=== PATIENT | female | born 1980 | race Caucasian/White ===

== ENCOUNTER 2022-10-25 16:41 | Observation (INO) | payer MEDICAID ==
[2022-10-25] MEDS ORDERED: SODIUM CHLORIDE 0.9% 1,000 ML IV STA (17:08)
[2022-10-25 17:20] LABS: BASOPHILS # (AUTO) 0.1 10^3/uL (0.0-0.1); BASOPHILS % (AUTO) 1.6 %; EOSINOPHILS % (AUTO) 0.3 %; HCT - HEMATOCRIT 31.6 % (37.0-47.0); HGB - HEMOGLOBIN 10.2 g/dL (12.0-16.0); LYMPHOCYTES # (AUTO) 0.8 10^3/uL (1.5-3.5); LYMPHOCYTES % (AUTO) 24.6 %; MEAN CORPUSCULAR HEMOGLOBIN 32.1 pg (27.0-31.0); MEAN CORPUSCULAR HGB CONC 32.3 g/dL (32.0-36.0); MEAN CORPUSCULAR VOLUME 99.4 fL (81.0-99.0); MEAN PLATELET VOLUME 9.1 fL (7.9-10.8); MONOCYTES # (AUTO) 0.3 10^3/uL (0.0-1.0); MONOCYTES % (AUTO) 10.5 %; NEUTROPHILS % (AUTO) 62.4 %; PLT - PLATELET COUNT 160 10^3/uL (130-450); RED BLOOD COUNT 3.18 10^6/uL (4.20-5.40); WHITE BLOOD COUNT 3.1 x10^3/uL (4.8-10.8)
[2022-10-25 17:28] LABS: INR 1.1 (0.8-1.2); PT - PROTHROMBIN TIME 12.5 secs (9.9-12.6)
[2022-10-25 17:39] LABS: ALBUMIN 3.1 g/dL (3.2-5.5); ALKALINE PHOSPHATASE 139 IU/L (42-121); ALT ALANINE AMINOTRANSFERASE 32 IU/L (10-60); AST ASPARTATE AMINOTRANSFERASE 100 IU/L (10-42); BILIRUBIN,TOTAL 2.4 mg/dL (0.2-1.0); BUN - BLOOD UREA NITROGEN 10 mg/dL (6-20); CALCIUM 8.1 mg/dL (8.5-10.3); CARBON DIOXIDE - CO2 27 mmol/L (21-32); CHLORIDE 98 mmol/L (101-111); CK- CREATINE KINASE 60 IU/L (22-269); CREATININE 0.6 mg/dL (0.4-1.0); ETOH - ETHANOL < 5.0 mg/dL; GFR - MDRD 109 (>89); GLUCOSE 99 mg/dL (70-100); LIPASE 151 U/L (22-51); MAGNESIUM 1.3 mg/dL (1.7-2.8); POTASSIUM 3.3 mmol/L (3.5-5.0); SODIUM 139 mmol/L (135-145); TOTAL PROTEIN 6.3 g/dL (6.7-8.2)
[2022-10-25] MEDS ORDERED: MAGNESIUM SULFATE 2 GRAM 2 GM/50 ML BAG IV ONE (17:51)
[2022-10-25] MEDS ORDERED: POTASSIUM CHLOR 10 MEQ/100 ML 10 MEQ/100 ML BAG IV STA (17:51)
[2022-10-25] MEDS ORDERED: THIAMINE INJ 100 MG in SODIUM CHLORIDE 0.9% 50 ML IV STA (17:52)
[2022-10-25] MEDS ORDERED: FOLIC ACID INJ 1 MG in SODIUM CHLORIDE 0.9% 1,000 ML IV STA (17:52)
[2022-10-25] MEDS ORDERED: FOLIC ACID INJ 1 MG, THIAMINE INJ 100 MG in SODIUM CHLORIDE 0.9% 1,000 ML IV STA (18:02)
[2022-10-25] MEDS ORDERED: LORazepam 2 MG/ML VIAL IVP STA ×3 (18:10→21:37)
--- NOTE | 2022-10-25 18:10 | ED Physician Documentation ---
History of Present Illness - Stated complaint Stated Complaint: ETOH/GENERAL WEAKNESS - Chief complaint Chief Complaint: Neuro - Additonal information Additional information: Patient 42-year-old female coming from local area detox facility presenting with confusion and hallucinations. Per EMS report auditory and visual hallucinations earlier today. Is receiving lorazepam. History of longstanding alcohol abuse disorder greater than 11 years. Patient reports she was drinking greater than 1 bottle of tequila daily.History is limited by her altered mental status. Review of Systems Unable to obtain: AMS PD PAST MEDICAL HISTORY - Present Medications Home Medications: Ambulatory Orders Medication Instructions Recorded Confirmed Acetaminophen [Tylenol] 1,000 mg PO Q6HR PRN 10/25/22 10/25/22 Gabapentin [Neurontin] 300 mg PO TID 10/25/22 10/25/22 Ibuprofen 600 mg PO Q6HR PRN 10/25/22 10/25/22 LORazepam [Ativan] 1 mg PO QID 10/25/22 10/26/22 Melatonin 10 mg PO HS PRN 10/25/22 10/25/22 Multivitamin [Theragran] 1 each PO DAILY 10/25/22 10/25/22 Ondansetron Odt [Zofran Odt] 4 mg TL Q6H PRN 10/25/22 10/25/22 Promethazine [Phenergan] 25 mg PO TID PRN 10/25/22 10/26/22 Vitamin B Complex Vit C No.3 [B 1 each PO DAILY 10/25/22 10/25/22 Complex with Vitamin C] methocarbamoL [Methocarbamol] 1,500 mg PO Q6HR PRN 10/25/22 10/26/22 traZODone [Desyrel] 50 - 100 mg PO HS PRN 10/25/22 10/25/22 - Allergies Allergies/Adverse Reactions: Allergies Allergy/AdvReac Type Severity Reaction Status Date / Time Penicillins Allergy Unknown Verified 10/25/22 16:44 PD ED PE NORMAL - Vitals Vital signs reviewed: Yes (BL BP) - General General: Alert and oriented X 3, Other (Patient with slowed, somnolent responses, appears to be responding to internal stimuli.) - HEENT HEENT: Atraumatic, PERRL, EOMI, Ears normal, Moist mucous membranes, Pharynx benign, Dentition benign, Other - Neck Neck: Supple, no meningeal sign, No bony TTP, No adenopathy, Thyroid normal, No JVD, No bruit, C-Spine cleared by NEXUS criteria - Cardiac Cardiac: RRR, No murmur, No gallop, No rub, Strong equal pulses - Respiratory Respiratory: No respiratory distress, Clear bilaterally - Abdomen Abdomen: Normal bowel sounds, Soft, Non tender, No organomegaly - Female Female : Deferred - Rectal Rectal: Deferred - Derm Derm: Normal color, Warm and dry - Neuro Neuro: Alert and oriented X 3, news photographer 2-12 intact, Other (Somewhat unreliable exam secondary to portions altered mentation however possible left lower extremity weakness in comparison to right. Patient freely moves all extremities.) Results - Vitals Vitals: Vital Signs - 24 hr 10/25/22 10/25/22 10/25/22 20:37 21:44 22:10 Heart Rate 99 91 87 Respiratory 18 21 15 Rate Blood Pressure 137/109 H 135/107 H 133/110 H O2 Saturation 98 98 99 If not protocol : Oxygen Flow, liters/minute 10/25/22 10/26/22 10/26/22 23:27 00:13 02:30 Heart Rate 83 80 84 Respiratory 17 17 18 Rate Blood Pressure 150/111 H 138/108 H 148/112 H O2 Saturation 100 96 100 If not protocol 2 2 : Oxygen Flow, liters/minute 10/26/22 10/26/22 10/26/22 04:00 06:00 06:53 Heart Rate 86 93 88 Respiratory 19 28 H 24 Rate Blood Pressure 154/113 H 142/112 H 152/113 H O2 Saturation 94 97 95 If not protocol : Oxygen Flow, liters/minute 10/26/22 10/26/22 08:12 10:00 Heart Rate 96 96 Respiratory 22 21 Rate Blood Pressure 139/110 H 126/109 H O2 Saturation 97 98 If not protocol : Oxygen Flow, liters/minute Oxygen O2 Source Room air - EKG (time done) 1726 EKG releavant findings:: EKG personally interpreted by author of this note. Relevant findings are: Sinus rhythm with rate 89 bpm. Normal axis. Normal HI, QRS, QTc intervals. No ST segment elevations or T wave inversions. - Labs Labs: Microbiology 10/26/22 03:36 Urine Culture - Preliminary Urine,Clean Catch CULTURE IN PROGRESS. RESULTS TO FOLLOW. Laboratory Tests 10/25/22 10/25/22 10/25/22 17:11 17:11 17:11 WBC 3.1 L RBC 3.18 L Hgb 10.2 L Hct 31.6 L MCV 99.4 H MCH 32.1 H MCHC 32.3 RDW 17.0 H Plt Count 160 MPV 9.1 Neut # (Auto) 2.0 Lymph # (Auto) 0.8 L Wharton # (Auto) 0.3 Eos # (Auto) 0.0 Baso # (Auto) 0.1 Absolute Nucleated RBC 0.00 Nucleated RBC % 0.0 PT 12.5 INR 1.1 Sodium 139 Potassium 3.3 L Chloride 98 L Carbon Dioxide 27 Anion Gap 14.0 H BUN 10 Creatinine 0.6 Estimated GFR (MDRD) 109 Glucose 99 Lactic Acid Calcium 8.1 L Magnesium 1.3 L Total Bilirubin 2.4 H AST 100 H ALT 32 Alkaline Phosphatase 139 H Ammonia Total Creatine Kinase 60 Total Protein 6.3 L Albumin 3.1 L Globulin 3.2 Albumin/Globulin Ratio 1.0 Lipase 151 H Urine Color Urine Clarity Urine pH Ur Specific [place] Urine Protein Urine Glucose (UA) Urine Ketones Urine Occult Blood Urine Nitrite Urine Bilirubin Urine Urobilinogen Ur Leukocyte Esterase Urine RBC Urine WBC Ur Squamous Epith Cells Urine Bacteria Ur Microscopic Review Urine Culture Comments Urine HCG, Qual Nasal Adenovirus (PCR) Nasal B. parapertussis DNA (PCR) Nasal Coronavir 229E PCR Nasal Coronavir HKU1 PCR Nasal Coronavir NL63 PCR Nasal Coronavir OC43 PCR Nasal Enterovir/Rhinovir PCR Nasal Influenza B PCR Nasal Influenza A PCR Nasal Parainfluen 1 PCR Nasal Parainfluen 2 PCR Nasal Parainfluen 3 PCR Nasal Parainfluen 4 PCR Nasal RSV (PCR) Nasal B.pertussis DNA PCR Nasal C.pneumoniae (PCR) Gary Human Metapneumo PCR Nasal M.pneumoniae (PCR) Nasal SARS-CoV-2 (PCR) Urine Opiates Screen Ur Oxycodone Screen Urine Methadone Screen Ur Propoxyphene Screen Ur Barbiturates Screen Ur Tricyclics Screen Ur Phencyclidine Scrn Ur Amphetamine Screen U Methamphetamines Scrn U Benzodiazepines Scrn Urine Cocaine Screen U Cannabinoids Screen Ethyl Alcohol < 5.0 10/25/22 10/25/22 10/26/22 17:11 18:12 03:27 WBC RBC Hgb Hct MCV MCH MCHC RDW Plt Count MPV Neut # (Auto) Lymph # (Auto) Wharton # (Auto) Eos # (Auto) Baso # (Auto) Absolute Nucleated RBC Nucleated RBC % PT INR Sodium Potassium Chloride Carbon Dioxide Anion Gap BUN Creatinine Estimated GFR (MDRD) Glucose Lactic Acid 2.6 H Calcium Magnesium Total Bilirubin AST ALT Alkaline Phosphatase Ammonia 45.9 H Total Creatine Kinase Total Protein Albumin Globulin Albumin/Globulin Ratio Lipase Urine Color Urine Clarity Urine pH Ur Specific [place] Urine Protein Urine Glucose (UA) Urine Ketones Urine Occult Blood Urine Nitrite Urine Bilirubin Urine Urobilinogen Ur Leukocyte Esterase Urine RBC Urine WBC Ur Squamous Epith Cells Urine Bacteria Ur Microscopic Review Urine Culture Comments Urine HCG, Qual Nasal Adenovirus (PCR) NOT DETECTED Nasal B. parapertussis DNA (PCR) NOT DETECTED Nasal Coronavir 229E PCR NOT DETECTED Nasal Coronavir HKU1 PCR NOT DETECTED Nasal Coronavir NL63 PCR NOT DETECTED Nasal Coronavir OC43 PCR NOT DETECTED Nasal Enterovir/Rhinovir PCR NOT DETECTED Nasal Influenza B PCR NOT DETECTED Nasal Influenza A PCR NOT DETECTED Nasal Parainfluen 1 PCR NOT DETECTED Nasal Parainfluen 2 PCR NOT DETECTED Nasal Parainfluen 3 PCR NOT DETECTED Nasal Parainfluen 4 PCR NOT DETECTED Nasal RSV (PCR) NOT DETECTED Nasal B.pertussis DNA PCR NOT DETECTED Nasal C.pneumoniae (PCR) NOT DETECTED Gary Human Metapneumo PCR NOT DETECTED Nasal M.pneumoniae (PCR) NOT DETECTED Nasal SARS-CoV-2 (PCR) NOT DETECTED Urine Opiates Screen Ur Oxycodone Screen Urine Methadone Screen Ur Propoxyphene Screen Ur Barbiturates Screen Ur Tricyclics Screen Ur Phencyclidine Scrn Ur Amphetamine Screen U Methamphetamines Scrn U Benzodiazepines Scrn Urine Cocaine Screen U Cannabinoids Screen Ethyl Alcohol 10/26/22 10/26/22 10/26/22 03:36 03:36 05:21 WBC RBC Hgb Hct MCV MCH MCHC RDW Plt Count MPV Neut # (Auto) Lymph # (Auto) Wharton # (Auto) Eos # (Auto) Baso # (Auto) Absolute Nucleated RBC Nucleated RBC % PT INR Sodium 141 Potassium 3.3 L Chloride 106 Carbon Dioxide 24 Anion Gap 11.0 BUN 7 Creatinine 0.5 Estimated GFR (MDRD) 135 Glucose 77 Lactic Acid Calcium 7.4 L Magnesium 2.0 Total Bilirubin 2.2 H AST 78 H ALT 27 Alkaline Phosphatase 127 H Ammonia Total Creatine Kinase Total Protein 5.6 L Albumin 2.8 L Globulin 2.8 Albumin/Globulin Ratio 1.0 Lipase 88 H Urine Color YELLOW Urine Clarity SL. CLOUDY Urine pH 6.5 Ur Specific [place] 1.015 Urine Protein NEGATIVE Urine Glucose (UA) NEGATIVE Urine Ketones NEGATIVE Urine Occult Blood NEGATIVE Urine Nitrite NEGATIVE Urine Bilirubin NEGATIVE Urine Urobilinogen 2 H Ur Leukocyte Esterase LARGE H Urine RBC 0-5 Urine WBC >25 H Ur Squamous Epith Cells FEW Squamous Urine Bacteria Many H Ur Microscopic Review INDICATED Urine Culture Comments INDICATED Urine HCG, Qual NEGATIVE Nasal Adenovirus (PCR) Nasal B. parapertussis DNA (PCR) Nasal Coronavir 229E PCR Nasal Coronavir HKU1 PCR Nasal Coronavir NL63 PCR Nasal Coronavir OC43 PCR Nasal Enterovir/Rhinovir PCR Nasal Influenza B PCR Nasal Influenza A PCR Nasal Parainfluen 1 PCR Nasal Parainfluen 2 PCR Nasal Parainfluen 3 PCR Nasal Parainfluen 4 PCR Nasal RSV (PCR) Nasal B.pertussis DNA PCR Nasal C.pneumoniae (PCR) Gary Human Metapneumo PCR Nasal M.pneumoniae (PCR) Nasal SARS-CoV-2 (PCR) Urine Opiates Screen NEGATIVE Ur Oxycodone Screen NEGATIVE Urine Methadone Screen NEGATIVE Ur Propoxyphene Screen NEGATIVE Ur Barbiturates Screen NEGATIVE Ur Tricyclics Screen NEGATIVE Ur Phencyclidine Scrn NEGATIVE Ur Amphetamine Screen NEGATIVE U Methamphetamines Scrn NEGATIVE U Benzodiazepines Scrn POSITIVE H Urine Cocaine Screen NEGATIVE U Cannabinoids Screen NEGATIVE Ethyl Alcohol 10/26/22 05:21 WBC RBC Hgb Hct MCV MCH MCHC RDW Plt Count MPV Neut # (Auto) Lymph # (Auto) Wharton # (Auto) Eos # (Auto) Baso # (Auto) Absolute Nucleated RBC Nucleated RBC % PT INR Sodium Potassium Chloride Carbon Dioxide Anion Gap BUN Creatinine Estimated GFR (MDRD) Glucose Lactic Acid 0.9 Calcium Magnesium Total Bilirubin AST ALT Alkaline Phosphatase Ammonia Total Creatine Kinase Total Protein Albumin Globulin Albumin/Globulin Ratio Lipase Urine Color Urine Clarity Urine pH Ur Specific [place] Urine Protein Urine Glucose (UA) Urine Ketones Urine Occult Blood Urine Nitrite Urine Bilirubin Urine Urobilinogen Ur Leukocyte Esterase Urine RBC Urine WBC Ur Squamous Epith Cells Urine Bacteria Ur Microscopic Review Urine Culture Comments Urine HCG, Qual Nasal Adenovirus (PCR) Nasal B. parapertussis DNA (PCR) Nasal Coronavir 229E PCR Nasal Coronavir HKU1 PCR Nasal Coronavir NL63 PCR Nasal Coronavir OC43 PCR Nasal Enterovir/Rhinovir PCR Nasal Influenza B PCR Nasal Influenza A PCR Nasal Parainfluen 1 PCR Nasal Parainfluen 2 PCR Nasal Parainfluen 3 PCR Nasal Parainfluen 4 PCR Nasal RSV (PCR) Nasal B.pertussis DNA PCR Nasal C.pneumoniae (PCR) Gary Human Metapneumo PCR Nasal M.pneumoniae (PCR) Nasal SARS-CoV-2 (PCR) Urine Opiates Screen Ur Oxycodone Screen Urine Methadone Screen Ur Propoxyphene Screen Ur Barbiturates Screen Ur Tricyclics Screen Ur Phencyclidine Scrn Ur Amphetamine Screen U Methamphetamines Scrn U Benzodiazepines Scrn Urine Cocaine Screen U Cannabinoids Screen Ethyl Alcohol PD Medical Decision Making - ED course Complexity details: reviewed old records, re-evaluated patient ED course: Patient 42-year-old female coming from local area detox facility with complaint of altered mental status and hallucinations. Afebrile, hemodynamically stable on arrival to the emergency department. Notably patient has soft blood pressures and no tachycardia on arrival. Physical exam demonstrated a somewhat ill-appearing 42-year-old female who is alert and orientated but had slowed responses to questions and appeared to be responding to internal stimuli throughout my interview. She moves all extrem ities spontaneously however was poorly compliant with my neurologic exam. She did not demonstrate any significant tremor, dysmetria or weakness in the upper extremities however there was possibly some increased weakness when laid using the left lower extremity against gravity versus the right. No clear time of onset for the symptoms. EKG as outlined above was negative for indications of acute cardiac ischemia or dysrhythmia. Patient's lab work demonstrated some significant electrolyte abnormalities and she was given magnesium repletion as well as potassium, folate and thiamine. She was given IV fluids. CT of the head did demonstrate a 8 mm hygroma with 4 mm midline shift of unclear clinical significance. Her initial CIWA calculated by nursing staff was 19. I did order for 1 mg IV A tivan to be administered in the emergency department. At this time I will be signing this patient out to the oncoming physicianPlease see their documentation for further detail. Departure - Departure Disposition: ED Place in Observation Clinical Impression: Alcohol withdrawal delirium, Hypomagnesemia, Hypokalemia Urinary tract infection Qualifiers: Urinary tract infection type: acute cystitis Hematuria presence: without hemat uria Qualified Code(s): N30.00 - Acute cystitis without hematuria Condition: Stable Discharge Date/Time: 10/26/22 11:14
--- NOTE | 2022-10-25 18:49 | CT Report ---
PROCEDURE: CT brain without contrast INDICATIONS: AMS TECHNIQUE: Noncontrast 4.5 mm thick angled axial sections acquired from the foramen magnum to the vertex. For r adiation dose reduction, the following was used: automated exposure control, adjustment of mA and/or kV according to patient size. COMPARISON: None. FINDINGS: Image quality: Excellent. CSF spaces: Basal cisterns are patent. Low-density left-sided extra-axial fluid collection measures up to 8 mm in thickness and results in 4 mm [id number] midline shift and smaller right-sided extra -axial fluid measures up to 3 mm. No evidence of parenchymal hemorrhage. Ventricles are normal in si ze and shape. Brain: No midline shift. No intracranial masses or hemorrhage. Bedolla-white matter interface is norm al. Skull and face: Calvarium and visualized facial bones are intact, without suspicious lesions. Sinuses: Visualized sinuses and mastoids are clear. IMPRESSION: Left-sided subdural hygroma measures 8 mm in thickness results in 4 mm midline shift. No evidence of parenchymal hemorrhage Reviewed by: Aniceto Luna MD on 10/25/2022 5:47 PM AKDT Approved by: Aniceto Luna MD on 10/25/2022 5:47 PM AKDT Station ID: [id number]
--- NOTE | 2022-10-25 19:14 | Ultrasound Report ---
PROCEDURE: Abdomen Limited INDICATIONS: Evaluation of gallbladder TECHNIQUE: Real-time focused scanning was performed of the abdomen, with image documentation. COMPARISONS: None. FINDINGS: Liver: The liver demonstrates diffusely increased echotexture without focal abnormalities which is c onsistent with chronic hepatocellular disease/hepatic steatosis. Gallbladder: Gallbladder contains layering sludge. No wall thickening. No pericholecystic fluid. Nega tive sonographic Post's sign. No gallstones identified. Biliary ducts: Intrahepatic bile ducts are non-dilated. Extrahepatic bile duct caliber measures 6 m m. Normal is 6-7 mm or less in diameter, or 10 mm or less post-cholecystectomy. Pancreas: Visualized portions of the pancreas are sonographically normal. Right kidney: Normal in size and echotexture. Right kidney measures 10.3 cm long. No hydronephrosis or nephrolithiasis. No solid masses. No complex renal cystic lesions which require follow-up. Aorta: Visualized aorta is normal in caliber at less than 3 cm. IVC: Intrahepatic inferior vena cava is patent. Miscellaneous: No free abdominal fluid. IMPRESSION: 1. Hepatic steatosis without focal intrahepatic abnormalities. 2. Gallbladder sludge near the gallbladder fundus. No evidence for cholelithiasis. No sonographic alfreda dence for acute cholecystitis. Reviewed by: Devaughn Gonzalez MD on 10/25/2022 7:13 PM PDT Approved by: Devaughn Gonzalez MD on 10/25/2022 7:13 PM PDT Station ID: [id number]
[2022-10-25 19:37] LABS: B. PARAPERTUSSIS- RESP PCR PAN NOT DETECTED; B. PERTUSSIS- RESP PCR PANEL NOT DETECTED; C. PNEUMONIAE- RESP PCR PANEL NOT DETECTED; CORONAVIRUS 229E-RESP PCR NOT DETECTED; CORONAVIRUS HKU1-RESP PCR NOT DETECTED; CORONAVIRUS NL63-RESP PCR NOT DETECTED; CORONAVIRUS OC43-RESP PCR NOT DETECTED; HUMAN METAPNEUMOVIRUS NOT DETECTED; INFLUENZA A- RESP PCR PANEL NOT DETECTED; INFLUENZA B - RESP PCR PANEL NOT DETECTED; M. PNEUMONIAE- RESP PCR PANEL NOT DETECTED; PARAINFLUENZA VIRUS 1 NOT DETECTED; PARAINFLUENZA VIRUS 2 NOT DETECTED; PARAINFLUENZA VIRUS 3 NOT DETECTED; PARAINFLUENZA VIRUS 4 NOT DETECTED; RHINOVIRUS/ENTEROVIRUS NOT DETECTED; RSV- RESP PCR PANEL NOT DETECTED; SARS-CoV-2 -RESP PCR PANEL NOT DETECTED
--- NOTE | 2022-10-25 22:41 | ED Physician Documentation ---
ED Addendum - Addendum Addendum: 10/25/22 22:37 I received signout on this patient from Dr. Rowe at the end of his shift; please see his note for complete H&P. In brief, this patient comes to the emergency department from [facility] ([facility] where she had been staying for the past 2 days for treatment of alcohol withdrawal. Reportedly, she was sent to the emergency department tonight for increasingly altered mental status and generalized weakness. Of chief concern is the finding of an [address] of the head which is causing a 4 mm midline shift. On my evaluation the patient, she is asleep, awakens to voice but only when accompanied by gentle tactile stimulus. She awakens briefly, is very drowsy, has slurred, mumbling speech. Most of her answers are difficult to understand and, when they are intelligible, are either irrelevant to the question or else simply incorrect (for example, she says she is in "[facility]" when I ask her where she is. She is able to tell me her first name, but is unintelligible when trying to provide her last name).Her altered mental status also complicates the exam including the neurologic exam. She has equal communications professor on my exam, raises both legs briefly when instructed, but does not have any dorsiflexion or plantarflexion bilaterally (I suspect this is more likely due to altered mental status, she repeatedly falls asleep on this part of the exam). I do not see nor find any lateralizing neurologic symptoms. I discussed this case with the neurosurgeon on-call for [facility] (Dr. Gallegos). This conversation took place at 10:30 PM on 10/25/2022; he recommends repeating the CT head now. He says that if there is no significant change, patient would not benefit from, no require, transfer to another facility. 10/26/22 08:[address] head shows no significant change from the CT head performed 4 hours earlier. She continues to exhibit drowsiness, slurred speech, and is disoriented to time and place. However, her answers to my questions have become more intelligible (less slurred). I note extremity tremulousness with movement although not at rest. After a few more hours of observation in the emergency department, I contacted the on-call telehealth physician for [facility] to discuss admission to [facility] for ongoing AMS. The telehealth physician I spoke with said he would be agreeable to writing orders to admit this patient to [facility], but that his recommendation was a neurology consult as well as EEG; he says he is concerned about possible subclinical seizures. We discussed this concern further, and given that EEG is not available at [facility], I was more comfortable holding patient in ED overnight and contacting the [facility] hospitalist in the morning if patient does not improve adequately to consider d/c home. Although patient is exhibiting and altered mental status, there is no seizure activity observed and I do not see the need/indication for emergent neurology consult and/or EEG in this confused but conscious patient. Towards the end of my shift, patient has become increasingly awake, alert, and eventually is oriented x3. She answers my questions quietly but quickly, articulately, and accurately. A CTA of the head and neck is performed towards the end of my shift, and these do not show any significant change from the previous CT head (regarding the hygroma/midline shift), nor any other acute/concerning findings. The patient's tremulousness is noted to gradually but steadily worsen, although responds to repeated doses of lorazepam intravenously. Some consideration was given to try to get the patient back to [facility], but, unfortunately, ED RN was unable to get patient to even stand at the bedside due to tremulousness and generalized weakness. The [facility] facility requires that patients are able to ambulate independently. Thus, I contacted Dr. House, [facility] hospitalist, and she will admit patient to [facility] for observation. My impression of the cause of her symptoms is alcohol withdrawal with delirium. Repeated neurologic exams during my shift continued to demonstrate no focal nor lateralizing abnormalities. Patient tells me she has been drinking on a heavy and daily basis for at least several months, drinks a bottle of tequila every day. She says that she has never been treated on an inpatient basis for alcohol withdrawal in the past. She tells me she does not recall any recent falls. Regarding past medical history, patient tells me that she has high blood pressure and is supposed be taking a prescription blood pressure medication but admits that she has not been taking this recently. She is not sure which blood pressure medication she supposed be taking.
--- NOTE | 2022-10-25 23:28 | CT Report ---
PROCEDURE: HEAD WO INDICATIONS: abnormal CT 4 hours ago, repeat CT for comparison TECHNIQUE: Noncontrast 4.5 mm thick angled axial sections acquired from the foramen magnum to the vertex. For r adiation dose reduction, the following was used: automated exposure control, adjustment of mA and/or kV according to patient size. COMPARISON: Prior CT head 10/25/2022.. FINDINGS: Image quality: There is mild motion artifact slightly limiting evaluation. CSF spaces: There is a holohemispheric left hypodense subdural hygroma redemonstrated measuring up t o approximately 1.0 cm in thickness, similar in size compared to the prior study (remeasured). There is mild rightward midline shift measuring up to 0.5 cm, also similar to the prior study. Basal cister ns are patent. Ventricles are normal in size. Brain: No acute intracranial hemorrhage, mass, or mass effect. Bedolla-white matter interface appears preserved. Skull and face: Calvarium and visualized facial bones are intact, without suspicious lesions. Sinuses: Visualized sinuses and mastoids are clear. IMPRESSION: 1. Left holohemispheric subdural hygroma and mild rightward midline shift appear similar to the prior study. No definite acute intracranial hemorrhage. Reviewed by: Ari Meyer MD on 10/25/2022 11:40 PM PDT Approved by: Ari Meyer MD on 10/25/2022 11:40 PM PDT Station ID: [id number]
[2022-10-26 03:39] LABS: MUDS CUTOFF CONCENTRATIONS CUTOFF CONC BELOW:
[2022-10-26 03:41] LABS: BILIRUBIN,URINE NEGATIVE (NEGATIVE); GLUCOSE, URINE (UA) NEGATIVE (NEGATIVE); KETONES,URINE (UA) NEGATIVE (NEGATIVE); LEUKOCYTE ESTERASE, URINE LARGE (NEGATIVE); NITRITE,URINE NEGATIVE (NEGATIVE); OCCULT BLOOD,URINE NEGATIVE (NEGATIVE); PH,URINE 6.5 PH (5.0-7.5); PROTEIN,URINE NEGATIVE (NEGATIVE); UROBILINOGEN,URINE 2 E.U./dL (NORMAL)
[2022-10-26 03:48] LABS: BACTERIA,URINE Many /HPF (None Seen); CLARITY,URINE SL. CLOUDY (CLEAR); RBC,URINE 0-5 /HPF (0-5); SQUAMOUS EPITHELIAL CELL,UR FEW Squamous (<= Few); WBC,URINE >25 /HPF (0-5)
[2022-10-26 03:51] LABS: AMPHETAMINE SCREEN,URINE NEGATIVE (NEGATIVE); BARBITURATE SCREEN,UR NEGATIVE (NEGATIVE); BENZODIAZEPINES SCREEN, URINE POSITIVE (NEGATIVE); COCAINE SCREEN URINE NEGATIVE (NEGATIVE); METHADONE SCREEN, URINE NEGATIVE (NEGATIVE); METHAMPHETAMINES SCREEN, URINE NEGATIVE (NEGATIVE); OPIATE SCREEN, URINE NEGATIVE (NEGATIVE); OXYCODONE SCREEN, URINE NEGATIVE (NEGATIVE); PROPOXYPHENE SCREEN, URINE NEGATIVE (NEGATIVE); THC CANNABINOID SCREEN, URINE NEGATIVE (NEGATIVE); TRICYCLIC ANTIDEPRESSANT,URINE NEGATIVE (NEGATIVE)
[2022-10-26 04:11] LABS: HCG UR QUAL NEGATIVE
[2022-10-26] MEDS ORDERED: iohexoL-300 100 ML VIAL ONE (05:15)
[2022-10-26 05:38] LABS: ALBUMIN 2.8 g/dL (3.2-5.5); BILIRUBIN,TOTAL 2.2 mg/dL (0.2-1.0); CALCIUM 7.4 mg/dL (8.5-10.3); CREATININE 0.5 mg/dL (0.4-1.0); POTASSIUM 3.3 mmol/L (3.5-5.0); TOTAL PROTEIN 5.6 g/dL (6.7-8.2)
[2022-10-26] MEDS ORDERED: iohexoL-300 100 ML VIAL IVP ONE (05:45)
[2022-10-26] MEDS ORDERED: LORazepam 2 MG/ML VIAL IVP STA ×2 (05:54→07:21)
[2022-10-26] MEDS ORDERED: NITROFURANTOIN MACRO 100 MG CAPSULE PO STA (05:55)
[2022-10-26] MEDS ORDERED: CALCIUM CARBONATE CHEW 500 MG TABLET PO STA (07:11)
[2022-10-26] MEDS ORDERED: POTASSIUM CHLOR 10 MEQ/100 ML 10 MEQ/100 ML BAG IV ONE (07:11)
[2022-10-26] MEDS: POTASSIUM CHLOR 10 MEQ/100 ML 10 MEQ/100 ML BAG IV SCH ×4 (08:40→11:55)
--- NOTE | 2022-10-26 08:49 | CT Report ---
PROCEDURE: ANGIO NECK W INDICATIONS: AMS , generalized weakness CONTRAST: 80mL Omni 300 TECHNIQUE: After the administration of intravenous contrast, 1.5 mm axial sections acquired from the aortic arch to the [place] of [place]. Coronal 3-D maximum intensity projection (MIP) and/or volume rendering ref ormats were then performed. For radiation dose reduction, the following was used: automated exposur e control, adjustment of mA and/or kV according to patient size. COMPARISON: None. FINDINGS: Image quality: Excellent. Carotid system: The great vessels demonstrate a conventional anatomy as they arise from the aortic a rch. The origins of the common carotid arteries appear patent. The common carotid arteries demonstr ate normal calibers and courses. The bifurcation regions appear normal bilaterally. The internal ca rotid arteries demonstrate normal caliber and course. Posterior circulation: The origins of the vertebral arteries appear patent. The more superior porti ons of the vertebral arteries demonstrate normal course and caliber. They join to form a normal appe aring basilar artery. Soft tissues: Visualized neck soft tissues demonstrate no suspicious abnormalities. The thyroid is normal in size and there are no incidental findings. Likely iatrogenic venous gas noted in upper thor ax. Bones: No suspicious bony lesions. Visualized cervical spine appears normally aligned. IMPRESSION: No hemodynamically significant stenosis or aneurysm is seen in bilateral neck arteries. Findings are concordant with preliminary interpretation provided by [facility]. The estimate of stenosis included in the report of the imaging study was calculated using the NASCET method CLINICAL RECOMMENDATION STATEMENTS: In patients <35 years with an ITN detected on CT, MRI, or extrathyroidal ultrasound, the Committee re commends further evaluation with dedicated thyroid ultrasound if the nodule is "e1 cm and has no susp icious imaging features, and if the patient has normal life expectancy. In patients "e35 years with an ITN detected on CT, MRI, or extrathyroidal ultrasound, the Committee r ecommends further evaluation with dedicated thyroid ultrasound if the nodule is "e1.5 cm and has no s uspicious imaging features, and if the patient has normal life expectancy. (ACR, 2014) Reviewed by: Esau Cheatham MD on 10/26/2022 8:48 AM PDT Approved by: Esau Cheathma MD on 10/26/2022 8:48 AM PDT Station ID: [id number]
--- NOTE | 2022-10-26 08:52 | CT Report ---
PROCEDURE: ANGIO HEAD W/WO INDICATIONS: ams, hygroma on CTs performed earlier in ED CONTRAST: 80mL Omni 300 TECHNIQUE: Precontrast 4.5 mm thick angled axial sections acquired from the foramen magnum to the vertex. Afte r the administration of intravenous contrast, 1 mm thick sections acquired through the [place] of [place] is. Postcontrast 4.5 mm thick sections then re-acquired from the foramen magnum to the vertex. 3-di mensional cikcjml-wrcdiglds-qwrjvbqfnh (MIP) and/or volume rendering reformats were acquired of the c entral intracranial vasculature. For radiation dose reduction, the following was used: automated ex posure control, adjustment of mA and/or kV according to patient size. COMPARISON: CT of head dated 10/25/2022 FINDINGS: Image quality: Excellent. Anterior circulation: Intracranial internal carotid arteries are normal in size and flow. The flow within the paired anterior cerebral arteries is normal and symmetric. The flow within the middle cer ebral arteries is normal and symmetric. The anterior communicating artery is seen. No aneurysms are seen. Posterior circulation: Visualized portions of the vertebral arteries demonstrate normal caliber, and join to form a normal appearing basilar artery. Flow within the posterior cerebral arteries is norm al and symmetric. No aneurysms are seen. CSF spaces: Ventricles are normal in size and shape. Basal cisterns are patent. No extra-axial flu id collections. Brain: Hypodense subdural collection along left cerebral convexity is seen unchanged from previous st udies. Of 2 5 mm midline shift to the right is again noted unchanged. [place]-white matter interface dheeraj ears intact. Skull and face: Calvarium and facial bones appear intact, without suspicious lesions. Sinuses: Visualized sinuses and mastoids are clear. IMPRESSION: 1. No hemodynamically significant stenosis or aneurysm is seen in visualized intracranial circulation . 2. Stable appearing left-sided subdural hygroma with 5 mm midline shift to the right. No acute intrac ranial bleed. No area of abnormal contrast enhancement. No discrepancies from preliminary readings. Reviewed by: Esau Cheatham MD on 10/26/2022 8:50 AM PDT Approved by: Esau Cheatham MD on 10/26/2022 8:50 AM PDT Station ID: [id number]
[2022-10-26] MEDS ORDERED: ONDANSETRON 4 MG/2 ML VIAL IVP PRN (10:39)
[2022-10-26] MEDS ORDERED: ONDANSETRON ODT 4 MG TABLET TL PRN (10:39)
[2022-10-26] MEDS ORDERED: SODIUM CHLORIDE FLUSH 0.9% 10 ML SYRINGE IVP PRN (10:39)
[2022-10-26] MEDS: SODIUM CHLORIDE 0.9% 1,000 ML IV SCH ×2 (11:34→22:19)
[2022-10-26] MEDS: PRENATAL VITAMIN TABLET PO SCH (11:55)
[2022-10-26] MEDS: LORazepam 2 MG/ML VIAL IVP PRN ×4 (11:56→23:24)
[2022-10-26] MEDS: THIAMINE 100 MG TABLET PO SCH (11:56)
[2022-10-26] MEDS ORDERED: chlordiazePOXIDE 25 MG CAPSULE PO SCH (12:00)
[2022-10-26] MEDS: chlordiazePOXIDE 5 MG CAPSULE PO SCH ×2 (12:07→17:10)
[2022-10-26] MEDS ORDERED: cloNIDine 0.1 MG TABLET PO PRN (14:00)
[2022-10-26] MEDS ORDERED: CALCIUM CARBONATE CHEW 500 MG TABLET PO PRN (14:00)
[2022-10-26] MEDS ORDERED: traZODone 50 MG TABLET PO PRN (14:00)
[2022-10-26] MEDS: METOPROLOL TARTRATE 25 MG TABLET PO SCH ×2 (14:20→22:12)
--- NOTE | 2022-10-26 16:01 | PHARMACY PROGRESS NOTE ---
- Best Possible Medication History Admit Date and Time: 10/26/22 1039 Processed by: Pharmacy Medication History completed: Yes Patient Interview: Completed Secondary Source(s): Facility [facility] as ONLY source (called [facility]) As the person ultimately responsible for medication therapy, providers are able to order a medication from an existing home medication list in [facility] via the "Reconcile Routine" prior to Confirmation of that medication by student support services director. Such practice is discouraged except when the physician, in their clinical judgment, deems that a medical need exists for a medication without regard to previous use.
[2022-10-26] MEDS: SODIUM CHLORIDE FLUSH 0.9% 10 ML SYRINGE IVP SCH (16:31)
--- NOTE | 2022-10-26 19:21 | HISTORY & PHYSICAL EXAMINATION ---
Chief Complaint - Chief Complaint Chief Complaint: confusion, tremors, lethargy History of Present Illness - [facility] History Obtained From Records Reviewed: [facility] History obtained from: Dr. Ventura Exam Limitations: in withdrawal - History of Present Illness HPI Comment/Other: The patient was brought to the emergency room by EMS on October 25. She is in a treatment facility for alcohol withdrawal. Her last drink was October 23. She is on multiple, multiple medications for symptoms that are as needed. She was starting to have visual and auditory hallucinations. There is no description of fever, chills, cough. She was not ambulating as much and seem to be getting weaker. As such she was brought to the emergency room. On initial evaluation blood pressure was 98/57, temperature 37.5, heart rate 72. Oxygenating well on room air. Part of her evaluation included a CT of the head which showed a hygroma and a 4 mm shift, with the hygroma at 8 mm. Neurology was consulted (rather neurosurgery) and they felt that this was not acute problem. During her stay in the ER she was drowsy, with slurred mumbling speech. She was disoriented. Neurosurgery felt that this was not an acute problem and more due to her withdrawal. He recommended repeat CT of the head and he looked at the CAT scan and repeat CAT scan showed a 10 mm hygroma with a 5 mm shift. He did not feel that anything needed to be done. The patient was kept in the emergency room for a few more hours of observation. The ER doctor spoke to telehealth who postulated this patient could be having subclinical seizures. And recommended EEG. We do not have EEG or neurology at this facility. The ER doctor felt comfortable keeping the patient overnight. Toward the end of his shift the patient was increasingly awake, alert, oriented x3. He did a CT angiogram and nothing new was found. Although she was more awake and alert, she had increasing tremulousness. When they tried to stand her, she had generalized weakness and tremors. The rehab facility requires that the patient be able to walk independently. As such Dr. Ventura asked me to admit the patient. After discussion of her symptoms, presentation, treatment in the ER, I have decided to admit the patient observation. The patient tells me that this is the first time she is ever gone through withdrawal. She has never had seizures, nor has she had blackouts. History - Past Medical History Cardiovascular: reports: Hypertension (but can't remember BP pill) Respiratory: reports: None Neuro: reports: None Endocrine/Autoimmune: reports: None GI: reports: None FUELS ENGINEER: reports: Other () : reports: None HEENT: reports: None Psych: reports: Depression, Anxiety Musculoskeletal: reports: None Derm: reports: None - Family & Social History Family History Comment/Other: Mom and dad are both still alive. Dad has a history of squamous cell skin cancer from being in the sun all the time. But mom is healthy. 2 brothers that are healthy. No history of diabetes, cancer, heart attack, substance abuse, alcoholism. 2 children that are 15 and 13. 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 They still spend a lot of time together. They do not get along. He is taking care of their kids right now. She really does not want to share with me how much alcohol she drinks. She does vape nicotine and declines a nicotine patch. She denies cocaine, heroin, LSD or any other substance abuse. Meds/Allgy - Home Medications Home Medications: Ambulatory Orders Medication Instructions Recorded Confirmed Acetaminophen [Tylenol] 1,000 mg PO Q6HR PRN 10/25/22 10/25/22 Gabapentin [Neurontin] 300 mg PO TID 10/25/22 10/25/22 Ibuprofen 600 mg PO Q6HR PRN 10/25/22 10/25/22 LORazepam [Ativan] 1 mg PO QID 10/25/22 10/26/22 Melatonin 10 mg PO HS PRN 10/25/22 10/25/22 Multivitamin [Theragran] 1 each PO DAILY 10/25/22 10/25/22 Ondansetron Odt [Zofran Odt] 4 mg TL Q6H PRN 10/25/22 10/25/22 Promethazine [Phenergan] 25 mg PO TID PRN 10/25/22 10/26/22 Vitamin B Complex Vit C No.3 [B 1 each PO DAILY 10/25/22 10/25/22 Complex with Vitamin C] methocarbamoL [Methocarbamol] 1,500 mg PO Q6HR PRN 10/25/22 10/26/22 traZODone [Desyrel] 50 - 100 mg PO HS PRN 10/25/22 10/25/22 - Allergies Allergies/Adverse Reactions: Allergies Allergy/AdvReac Type Severity Reaction Status Date / Time Penicillins Allergy Unknown Verified 10/25/22 16:44 Review of Systems - Constitutional Constitutional: reports: Fatigue - Eyes Eyes: reports: Blurred vision - Ears, Nose & Throat Ears, Nose & Throat: denies: Ear pain, Hearing loss, Hearing aids - Cardiovascular Cariovascular: denies: Irregular heart rate, Palpitations, Chest pain, Edema - Respiratory Respiratory: denies: Cough, Sputum production, Wheezing, SOB at rest, SOB with exertion - Gastrointestinal Gastrointestinal: denies: Abdominal pain, Abdominal distention, Constipation - Genitourinary Genitourinary: denies: Frequency, Urgency - Musculoskeletal Musculoskeletal: reports: Muscle aches, Stiffness. denies: Muscle pain, Back pain - Integumentary Integumentary: denies: Rash, Pruritis, Lesions - Neurological Neurological: reports: General weakness, Headache, Dizziness. denies: Focal weakness, Numbness, Memory problems, Pre-existing deficit - Psychiatric Psychiatric: reports: Depression, Anxiety. denies: Suicidal - Endocrine Endocrine: denies: Polyuria, Polydypsia, Polyphagia - Hematologic/Lymphatic Hematologic/Lymphatic: denies: Anemia, Bruising Prior Level of Functionality: Independent with activities of daily living, drives a car, pays bills, takes care of her kids and home Exam - Vital Signs Reviewed Vital Signs: Yes Vital Signs: Vital Signs x48h Temp Pulse Resp BP BP Pulse Ox 10/26/22 16:00 36.3 C L 94 14 125/94 H 98 10/26/22 14:20 96 126/94 H 126/94 H - Physical Exam General Appearance: positive: Mild distress (Tremulous, shaky, forgetful but knows that she is at [place]) Eyes Bilateral: positive: PERRL, EOMI ENT: positive: Dry mucous membranes Neck: positive: No JVD. negative: Stiff neck Respiratory: positive: No respiratory distress. negative: Wheezes, Rales, Rhonchi Cardiovascular: positive: Regular rate & rhythm. negative: Tachycardia Peripheral Pulses: positive: 1+ Abdomen: positive: Non-tender, No organomegaly, Nml bowel sounds, No distention Skin: positive: Warm, Dry Neurologic/Psychiatric: positive: CN's nml (2-12), Disoriented to time, Other (She was described as hallucinating, but she currently denies auditory or visual hallucinations). negative: Motor nml (shakes and tremors) Conclusion/Plan - Problem List (1) Alcohol withdrawal delirium Conclusion/Plan: No previous history of withdrawal, seizures, or blackouts. Placed in observation status. By description, I think she was receiving treatment for alcohol withdrawal at to [facility]. This resulted in sedation and altered mental status. I think that her CT findings are incidental. Start Librium 10 mg p.o. every 6 hours on effect schedule, continue Catapres 0.1 p.o. every 4 hours as needed anxiety, start CIWA protocol with Ativan 1 mg IV push every 30 minutes as needed CIWA greater than 8. Normal saline at 100 mils an hour. vitamin daily, thiamine 100 mg daily (We do not have IV vitamin replacement) (2) Hypokalemia Conclusion/Plan: 40 mill equivalent K rider ordered by me. She is already received 210 mEq riders in the ER. After treatment her potassium continues to be 3.3. As such I am doing the 40 mEq. Recheck potassium tomorrow. (3) Hypomagnesemia Conclusion/Plan: She was given potassium and magnesium replacement in the emergency room. Repeat magnesium is 2.0 this morning. We will continue to monitor daily and give as needed. (4) Urinary tract infection Conclusion/Plan: She had urobilinogen, leukocyte esterase, white cells, few red cells, many bacteria. She did have a few squamous cells. Culture will be done. Urine test is negative. In the ER she received Macrobid once. Continue Macrobid. Await culture results and adjust as needed. Qualifiers: Urinary tract infection type: acute cystitis Hematuria presence: without hematuria Qualified Code(s): N30.00 - Acute cystitis without hematuria (5) Alcoholic hepatitis Conclusion/Plan: Check acute hepatitis panel to make sure there is no other problems. Check ultrasound tomorrow morning. Qualifiers: Ascites presence: without ascites Qualified Code(s): K70.10 - Alcoholic hepatitis without ascites - Lab Results Lab results reviewed: Yes Fish Bones: 10/25/22 17:11 10/26/22 05:21 - Diagnostic Imaging Results Diagnostic Imaging Results: positive: Final report reviewed - EKG Results EKG Interpreted Independently: No Core Measures - Anticipated LOS I expect patient to be DC'd or transferred within 96 hours.: Yes - DVT/VTE - Prophylaxis VTE/DVT Device ordered at admit?: Yes
[2022-10-27] MEDS: SODIUM CHLORIDE FLUSH 0.9% 10 ML SYRINGE IVP SCH ×4 (00:07→23:47)
[2022-10-27] MEDS: chlordiazePOXIDE 5 MG CAPSULE PO SCH ×4 (00:16→12:02)
[2022-10-27] MEDS: LORazepam 2 MG/ML VIAL IVP PRN ×2 (01:16→08:47)
[2022-10-27 05:38] LABS: BASOPHILS # (AUTO) 0.1 10^3/uL (0.0-0.1); BASOPHILS % (AUTO) 1.6 %; EOSINOPHILS # (AUTO) 0.1 10^3/uL (0.0-0.7); EOSINOPHILS % (AUTO) 2.5 %; HCT - HEMATOCRIT 35.3 % (37.0-47.0); HGB - HEMOGLOBIN 11.4 g/dL (12.0-16.0); LYMPHOCYTES # (AUTO) 1.2 10^3/uL (1.5-3.5); LYMPHOCYTES % (AUTO) 26.3 %; MEAN CORPUSCULAR HEMOGLOBIN 32.3 pg (27.0-31.0); MEAN CORPUSCULAR HGB CONC 32.3 g/dL (32.0-36.0); MEAN PLATELET VOLUME 9.7 fL (7.9-10.8); MONOCYTES # (AUTO) 0.6 10^3/uL (0.0-1.0); MONOCYTES % (AUTO) 12.4 %; NEUTROPHILS # (AUTO) 2.5 10^3/uL (1.5-6.6); NEUTROPHILS % (AUTO) 55.4 %; NRBC ABSOLUTE COUNT (AUTO) 0.03 x10^3/uL; NUCLEATED RED BLOOD CELLS AUTO 0.7 /100WBC; PLT - PLATELET COUNT 177 10^3/uL (130-450); RED BLOOD COUNT 3.53 10^6/uL (4.20-5.40); RED CELL DISTRIBUTION WIDTH 16.3 % (12.0-15.0); WHITE BLOOD COUNT 4.5 x10^3/uL (4.8-10.8)
[2022-10-27 05:52] LABS: BUN - BLOOD UREA NITROGEN < 5 mg/dL (6-20); CALCIUM 8.1 mg/dL (8.5-10.3); CARBON DIOXIDE - CO2 20 mmol/L (21-32); CHLORIDE 105 mmol/L (101-111); CREATININE 0.4 mg/dL (0.4-1.0); GFR - MDRD 174 (>89); GLUCOSE 79 mg/dL (70-100); MAGNESIUM 1.7 mg/dL (1.7-2.8); PHOSPHORUS 2.5 mg/dL (2.5-4.6); POTASSIUM 3.8 mmol/L (3.5-5.0); SODIUM 137 mmol/L (135-145)
[2022-10-27] MEDS: THIAMINE 100 MG TABLET PO SCH (08:51)
[2022-10-27] MEDS: METOPROLOL TARTRATE 25 MG TABLET PO SCH ×2 (08:51→20:25)
[2022-10-27] MEDS: PRENATAL VITAMIN TABLET PO SCH (08:51)
[2022-10-27] MEDS: SODIUM CHLORIDE 0.9% 1,000 ML IV SCH ×2 (08:52→18:55)
[2022-10-27] MEDS: ENOXAPARIN 40 MG/0.4 ML SYRINGE SUBQ SCH (08:52)
[2022-10-27] MEDS: NITROFURANTOIN MACRO 100 MG CAPSULE PO SCH ×2 (08:54→22:00)
--- NOTE | 2022-10-27 18:22 | PROVIDER PROGRESS NOTE ---
Subjective - Prog Note Date Prog Note Date: 10/27/22 Prog Note Time: 18:19 - Subjective Subjective: She is slightly paranoid. She starts whispering to me in the middle of a conversation and I asked her why she is whispering. She whispers that she does not want the nursing surgical services director or the nurse to hear her answers. When I asked her why she says that they are out to get her and they will report her in court and she will lose custody of her children. She is tremulous, disoriented. While she does not get out of bed and is not picking at her IV she keeps and sticking out her right leg underneath the bars of the bed. She has bruised her kelley doing this. Current Medications - Current Medications Current Medications: Active Medications Acetaminophen (Acetaminophen 325 Mg Tablet) 650 mg PO Q4HR PRN PRN Reason: Pain 1 to 4, or Fever Calcium Carbonate/Glycine (Calcium Carbonate Chew 500 Mg Tablet) 500 mg PO PRN PRN PRN Reason: INDIGESTION Chlordiazepoxide HCl (Chlordiazepoxide 5 Mg Capsule) 10 mg PO Q6HR [facility] Last Admin: 10/27/22 12:02 Dose: 10 mg Clonidine HCl (Clonidine 0.1 Mg Tablet) 0.1 mg PO Q4HR PRN PRN Reason: Anxiety Enoxaparin Sodium (Enoxaparin 40 Mg/0.4 Ml Syringe) 40 mg SUBQ DAILY [facility] Last Admin: 10/27/22 08:52 Dose: 40 mg Sodium Chloride (Normal Saline 0.9%) 1,000 mls @ 100 mls/hr IV .Q10H [facility] Last Admin: 10/27/22 08:52 Dose: 100 mls/hr Lorazepam (Lorazepam 2 Mg/Ml Vial) 1 mg IVP Q30M PRN; Protocol PRN Reason: CIWA >8 Last Admin: 10/27/22 08:47 Dose: 1 mg Metoprolol Tartrate (Metoprolol Tartrate 25 Mg Tablet) 25 mg PO BID [facility] Last Admin: 10/27/22 08:51 Dose: 25 mg Nitrofurantoin (Nitrofurantoin Macro 100 Mg Capsule) 100 mg PO BID [facility] Last Admin: 10/27/22 08:54 Dose: 100 mg Ondansetron HCl (Ondansetron Odt 4 Mg Tablet) 4 mg TL Q6HR PRN PRN Reason: Nausea / Vomiting Ondansetron HCl (Ondansetron 4 Mg/2 Ml Vial) 4 mg IVP Q6HR PRN PRN Reason: Nausea / Vomiting Oxycodone HCl (Oxycodone 5 Mg Tablet) 5 mg PO Q4HR PRN PRN Reason: Pain 5 to 7 Multivit/Folic Acid/Iron ( Vitamin Tablet) 1 tab PO DAILY [facility] Last Admin: 10/27/22 08:51 Dose: 1 tab Sodium Chloride (Sodium Chloride Flush 0.9% 10 Ml Syringe) 10 ml IVP PRN PRN PRN Reason: NEEDED PER PROVIDER ORDERS Last Admin: 10/27/22 00:16 Dose: 10 ml Sodium Chloride (Sodium Chloride Flush 0.9% 10 Ml Syringe) 10 ml IVP 0100,0900,1700 [facility] Last Admin: 10/27/22 08:52 Dose: 10 ml Thiamine HCl (Thiamine 100 Mg Tablet) 100 mg PO DAILY [facility] Last Admin: 10/27/22 08:51 Dose: 100 mg Trazodone HCl (Trazodone 50 Mg Tablet) 50 mg PO HS PRN PRN Reason: Insomnia Acetaminophen [Tylenol] 1,000 mg PO Q6HR PRN 10/25/22 Gabapentin [Neurontin] 300 mg PO TID 10/25/22 Ibuprofen 600 mg PO Q6HR PRN 10/25/22 LORazepam [Ativan] 1 mg PO QID 10/25/22 Melatonin 10 mg PO HS PRN 10/25/22 Multivitamin [Theragran] 1 each PO DAILY 10/25/22 Ondansetron Odt [Zofran Odt] 4 mg TL Q6H PRN 10/25/22 Promethazine [Phenergan] 25 mg PO TID PRN 10/25/22 Vitamin B Complex Vit C No.3 [B Complex with Vitamin C] 1 each PO DAILY 10/25/22 methocarbamoL [Methocarbamol] 1,500 mg PO Q6HR PRN 10/25/22 traZODone [Desyrel] 50 - 100 mg PO HS PRN 10/25/22 Objective - Vital Signs/Intake & Output Reviewed Vital Signs: Yes Vital Signs: Vital Signs x48h Temp Pulse Resp BP Pulse Ox 10/27/22 16:06 36.5 C 88 20 96 10/27/22 15:07 36.5 C 87 16 110/84 H 98 10/27/22 11:50 36.8 C 89 16 108/89 H 99 Intake & Output: Intake & Output 10/24/22 10/25/22 10/26/22 10/27/22 23:59 23:59 23:59 23:59 Intake Total 1150 2601.2 1000 Balance 1150 2601.2 1000 - Objective General Appearance: positive: Other (She is awake, able to talk to me but she is tremulous, very dry cracked lips, confused, paranoid) Eyes Bilateral: positive: PERRL, EOMI ENT: positive: Dry mucous membranes Neck: positive: No JVD. negative: Stiff neck Respiratory: positive: No respiratory distress. negative: Wheezes, Rales, Rhonchi Cardiovascular: positive: Regular rate & rhythm. negative: Tachycardia Abdomen: positive: Non-tender, No organomegaly, Nml bowel sounds, No distention Skin: positive: Warm, Diaphoresis, Pallor Extremities: positive: Full ROM, No pedal edema Neurologic/Psychiatric: positive: CN's nml (2-12), Disoriented to time. negative: Motor nml (Tremors and tremulous), Mood/affect nml - Lab Results Fish Bones: 10/27/22 05:33 10/27/22 05:33 Other Labs: Lab Results x24hrs 10/27/22 10/27/22 Range/Units 05:33 05:33 WBC 4.5 L (4.8-10.8) x10^3/uL RBC 3.53 L (4.20-5.40) 10^6/uL Hgb 11.4 L (12.0-16.0) g/dL Hct 35.3 L (37.0-47.0) % MCV 100.0 H (81.0-99.0) fL MCH 32.3 H (27.0-31.0) pg MCHC 32.3 (32.0-36.0) g/dL RDW 16.3 H (12.0-15.0) % Plt Count 177 (130-450) 10^3/uL MPV 9.7 (7.9-10.8) fL Neut # (Auto) 2.5 (1.5-6.6) 10^3/uL Lymph # (Auto) 1.2 L (1.5-3.5) 10^3/uL [place] # (Auto) 0.6 (0.0-1.0) 10^3/uL Eos # (Auto) 0.1 (0.0-0.7) 10^3/uL Baso # (Auto) 0.1 (0.0-0.1) 10^3/uL Absolute Nucleated RBC 0.03 x10^3/uL Nucleated RBC % 0.7 /100WBC Sodium 137 (135-145) mmol/L Potassium 3.8 (3.5-5.0) mmol/L Chloride 105 (101-111) mmol/L Carbon Dioxide 20 L (21-32) mmol/L Anion Gap 12.0 (6-13) BUN < 5 L (6-20) mg/dL Creatinine 0.4 (0.4-1.0) mg/dL Estimated GFR (MDRD) 174 (>89) Glucose 79 (70-100) mg/dL Calcium 8.1 L (8.5-10.3) mg/dL Phosphorus 2.5 (2.5-4.6) mg/dL Magnesium 1.7 (1.7-2.8) mg/dL Assessment/Plan - Problem List (1) Alcohol withdrawal delirium Impression: No previous history of withdrawal, seizures, or blackouts. Placed in observation status. By description, I think she was receiving treatment for alcohol withdrawal at [facility]. This resulted in sedation and altered mental status. I think that her CT findings are incidental. I Started Librium 10 mg p.o. every 6 hours on effect schedule, continue Catapres 0.1 p.o. every 4 hours as needed anxiety, start CIWA protocol with Ativan 1 mg IV push every 30 minutes as needed CIWA greater than 8. Normal saline at 100 mils an hour. vitamin daily, thiamine 100 mg daily (We do not have IV vitamin replacement). With his treatment, the patient continues to have significant withdrawal. She is not needing restraints. But she is slightly paranoid, and delusional. Between yesterday noon and 8 AM this morning she has received 6 doses of 1 mg of Ativan. Plan: Increase Librium to 25 mg 3 times a day (2) Hypokalemia Conclusion/Plan: She received 20 mEq in the emergency room. Then 40 mEq last night. This morning her potassium is normal. Recheck potassium tomorrow.No supplementation for today. (3) Hypomagnesemia Conclusion/Plan: She was given potassium and magnesium replacement in the emergency room. Repeat magnesium is 2.0 this morning. We will continue to monitor daily and give as needed.Today's magnesium was 1.7. No supplementation needed. (4) Urinary tract infection Conclusion/Plan: She had urobilinogen, leukocyte esterase, white cells, few red cells, many bacteria. She did have a few squamous cells. Culture will be done. Urine test is negative. In the ER she received Macrobid once.Urine culture is now showing gram-negative rods. Continue Macrobid. Await culture results and adjust as needed. Qualifiers: Urinary tract infection type: acute cystitis Hematuria presence: without hematuria Qualified Code(s): N30.00 - Acute cystitis without hematuria (5) Alcoholic hepatitis Conclusion/Plan: I ordered an acute hepatitis panel to make sure there is no other problems. She had already had an abdomen ultrasound in the emergency room. So I canceled today's ultrasound. She has hepatic steatosis without focal intrahepatic abno rmalities. Gallbladder sludge in the gallbladder fundus. No evidence for cholelithiasis. No sonographic evidence for acute cholecystitis. review her labs Qualifiers: Ascites presence: without ascites Qualified Code(s): K70.10 - Alcoholic hepatitis without ascites (4) Urinary tract infection Qualifiers: Qualified Code(s): N30.00 - Acute cystitis without hematuria
[2022-10-27] MEDS: chlordiazePOXIDE 25 MG CAPSULE PO SCH (20:24)
[2022-10-27] MEDS: ACETAMINOPHEN 325 MG TABLET PO PRN (23:49)
[2022-10-28] MEDS: chlordiazePOXIDE 25 MG CAPSULE PO SCH ×3 (02:44→18:57)
[2022-10-28 05:21] LABS: BASOPHILS # (AUTO) 0.1 10^3/uL (0.0-0.1); BASOPHILS % (AUTO) 1.3 %; EOSINOPHILS # (AUTO) 0.1 10^3/uL (0.0-0.7); EOSINOPHILS % (AUTO) 1.1 %; HGB - HEMOGLOBIN 11.8 g/dL (12.0-16.0); LYMPHOCYTES # (AUTO) 1.3 10^3/uL (1.5-3.5); LYMPHOCYTES % (AUTO) 21.1 %; MEAN CORPUSCULAR HGB CONC 31.1 g/dL (32.0-36.0); MEAN CORPUSCULAR VOLUME 106.1 fL (81.0-99.0); MEAN PLATELET VOLUME 9.6 fL (7.9-10.8); MONOCYTES # (AUTO) 0.8 10^3/uL (0.0-1.0); MONOCYTES % (AUTO) 12.9 %; NEUTROPHILS # (AUTO) 3.8 10^3/uL (1.5-6.6); NEUTROPHILS % (AUTO) 61.3 %; PLT - PLATELET COUNT 227 10^3/uL (130-450); RED BLOOD COUNT 3.58 10^6/uL (4.20-5.40); RED CELL DISTRIBUTION WIDTH 17.2 % (12.0-15.0); WHITE BLOOD COUNT 6.2 x10^3/uL (4.8-10.8)
[2022-10-28] MEDS: SODIUM CHLORIDE 0.9% 1,000 ML IV SCH ×2 (05:24→15:50)
[2022-10-28 05:36] LABS: BUN - BLOOD UREA NITROGEN < 5 mg/dL (6-20); CALCIUM 7.9 mg/dL (8.5-10.3); CHLORIDE 105 mmol/L (101-111); CREATININE 0.5 mg/dL (0.4-1.0); GFR - MDRD 135 (>89); GLUCOSE 70 mg/dL (70-100); POTASSIUM 3.1 mmol/L (3.5-5.0); SODIUM 134 mmol/L (135-145)
[2022-10-28 05:38] LABS: CARBON DIOXIDE - CO2 12 mmol/L (21-32)
[2022-10-28 06:10] LABS: HBsAG SCREEN Negative (Negative); HCV AB Non Reactive (Non Reactive); HEPATITIS B CORE IGM AB Negative (Negative)
[2022-10-28] MEDS: ACETAMINOPHEN 325 MG TABLET PO PRN ×2 (08:48→19:00)
[2022-10-28] MEDS: PRENATAL VITAMIN TABLET PO SCH (08:49)
[2022-10-28] MEDS: METOPROLOL TARTRATE 25 MG TABLET PO SCH ×2 (08:49→20:46)
[2022-10-28] MEDS: THIAMINE 100 MG TABLET PO SCH (08:50)
[2022-10-28] MEDS: NITROFURANTOIN MACRO 100 MG CAPSULE PO SCH ×2 (08:50→20:46)
[2022-10-28] MEDS: ENOXAPARIN 40 MG/0.4 ML SYRINGE SUBQ SCH (08:50)
[2022-10-28] MEDS: SODIUM CHLORIDE FLUSH 0.9% 10 ML SYRINGE IVP SCH ×2 (08:50→17:11)
[2022-10-28] MEDS ORDERED: POTASSIUM CHLORIDE 20 MEQ/15 ML UDC PO ONE (12:00)
--- NOTE | 2022-10-28 14:56 | PROVIDER PROGRESS NOTE ---
Progress Note Subjective: Patient with improved mental status today Objective: General: No acute distress Head: Normocephalic atraumatic Eyes: PERRLA DC EOMI Mouth: No lesions Neck: Supple Chest: Clear to auscultation Cor: Regular rate and rhythm S1-S2 Abdomen: Soft nontender bowel sounds present Extremities: No pedal edema Neuro: Alert and oriented x3, Skin: No lesions Psych: Patient answers questions appropriately but is a little bit slow in answering - Problem List (1) Alcohol withdrawal delirium Impression: No previous history of withdrawal, seizures, or blackouts. Placed in observation status. By description, I think she was receiving treatment for alcohol withdrawal at [facility]. This resulted in sedation and altered mental status. I think that her CT findings are incidental. I Started Librium 10 mg p.o. every 6 hours on effect schedule, continue Catapres 0.1 p.o. every 4 hours as needed anxiety, start CIWA protocol with Ativan 1 mg IV push every 30 minutes as needed CIWA greater than 8. Normal saline at 100 mils an hour. vitamin daily, thiamine 100 mg daily (We do not have IV vitamin replacement). With his treatment, the patient continues to have significant withdrawal. She is not needing restraints. But she is slightly paranoid, and delusional. Between yesterday noon and 8 AM this morning she has received 6 doses of 1 mg of Ativan. Plan: Increase Librium to 25 mg 3 times a day October 28, 2022-patient's mental status has improved can answer questions appropria tely although a bit slow and slight hand tremor. (2) Hypokalemia Conclusion/Plan: She received 20 mEq in the emergency room. Continue to monitor and replete a ppropriately (3) Hypomagnesemia Conclusion/Plan: Continue to monitor and supplement as needed (4) Urinary tract infection Conclusion/Plan: She had urobilinogen, leukocyte esterase, white cells, few red cells, many bacteria. She did have a few squamous cells. Culture will be done. Urine test is negative. In the ER she received Macrobid once.Urine culture is now showing gram-negative rods. Continue Macrobid. Culture results show E. coli which is sensitive to Macrobid so continue Qualifiers: Urinary tract infection type: acute cystitis Hematuria presence: without hematuria Qualified Code(s): N30.00 - Acute cystitis without hematuria (5) Alcoholic hepatitis Conclusion/Plan: She has hepatic steatosis without focal intrahepatic abnormalities. Gallbladder sludge in the gallbladder fundus. No evidence for cholelithiasis. No sonographic evidence for acute cholecystitis. Qualifiers: Ascites presence: without ascites Qualified Code(s): K70.10 - Alcoholic hepatitis without ascites (4) Urinary tract infection Qualifiers: Qualified Code(s): N30.00 - Acute cystitis without hematuria
[2022-10-28] MEDS: polyethylene glycoL 3350 17 GM PACKET PO SCH ×2 (18:56→19:26)
[2022-10-29] MEDS: SODIUM CHLORIDE 0.9% 1,000 ML IV SCH ×3 (01:17→22:58)
[2022-10-29] MEDS: SODIUM CHLORIDE FLUSH 0.9% 10 ML SYRINGE IVP SCH ×3 (01:19→17:00)
[2022-10-29] MEDS: chlordiazePOXIDE 25 MG CAPSULE PO SCH ×3 (02:58→19:25)
[2022-10-29 05:06] LABS: BASOPHILS # (AUTO) 0.1 10^3/uL (0.0-0.1); BASOPHILS % (AUTO) 1.1 %; EOSINOPHILS # (AUTO) 0.1 10^3/uL (0.0-0.7); EOSINOPHILS % (AUTO) 1.8 %; HCT - HEMATOCRIT 33.8 % (37.0-47.0); HGB - HEMOGLOBIN 10.7 g/dL (12.0-16.0); LYMPHOCYTES % (AUTO) 16.9 %; MEAN CORPUSCULAR HEMOGLOBIN 32.9 pg (27.0-31.0); MEAN CORPUSCULAR HGB CONC 31.7 g/dL (32.0-36.0); MEAN PLATELET VOLUME 9.1 fL (7.9-10.8); MONOCYTES # (AUTO) 0.8 10^3/uL (0.0-1.0); MONOCYTES % (AUTO) 13.3 %; NEUTROPHILS # (AUTO) 3.7 10^3/uL (1.5-6.6); NEUTROPHILS % (AUTO) 65.5 %; PLT - PLATELET COUNT 244 10^3/uL (130-450); RED BLOOD COUNT 3.25 10^6/uL (4.20-5.40); RED CELL DISTRIBUTION WIDTH 17.3 % (12.0-15.0); WHITE BLOOD COUNT 5.6 x10^3/uL (4.8-10.8)
[2022-10-29 05:20] LABS: BUN - BLOOD UREA NITROGEN < 5 mg/dL (6-20); CALCIUM 7.8 mg/dL (8.5-10.3); CARBON DIOXIDE - CO2 17 mmol/L (21-32); CHLORIDE 112 mmol/L (101-111); CREATININE 0.4 mg/dL (0.4-1.0); GFR - MDRD 174 (>89); GLUCOSE 89 mg/dL (70-100); POTASSIUM 3.6 mmol/L (3.5-5.0); SODIUM 136 mmol/L (135-145)
[2022-10-29] MEDS ORDERED: CALCIUM GLUC 1,000MG/50ML-NACL 1,000 MG/50 ML BAG IV ONE (07:32)
[2022-10-29] MEDS ORDERED: FOLIC ACID 1 MG TABLET PO SCH (09:00)
[2022-10-29] MEDS: CALCIUM CARBONATE CHEW 500 MG TABLET PO SCH ×2 (09:18→21:16)
[2022-10-29] MEDS: METOPROLOL TARTRATE 25 MG TABLET PO SCH ×2 (09:18→21:15)
[2022-10-29] MEDS: ENOXAPARIN 40 MG/0.4 ML SYRINGE SUBQ SCH (09:19)
[2022-10-29] MEDS: THIAMINE 100 MG TABLET PO SCH (09:19)
[2022-10-29] MEDS: PRENATAL VITAMIN TABLET PO SCH (09:19)
[2022-10-29] MEDS: NITROFURANTOIN MACRO 100 MG CAPSULE PO SCH ×2 (09:19→21:16)
[2022-10-29] MEDS: polyethylene glycoL 3350 17 GM PACKET PO SCH (09:22)
[2022-10-29 10:04] LABS: HCG,QUALITATIVE BLOOD NEGATIVE
--- NOTE | 2022-10-29 16:31 | PROVIDER PROGRESS NOTE ---
Assessment/Plan - Problem List (1) Alcohol withdrawal delirium Assessment/Plan: Patient currently is on scheduled Librium and gradually improving still has intermittently some mild confusion and slower to react and some mild tremors but is markedly improved from admission. (2) Alcoholic hepatitis Qualifiers: Ascites presence: without ascites Qualified Code(s): K70.10 - Alcoholic hepatitis without ascites Assessment/Plan: Has hepatic steatosis without focal intrahepatic abnormalities. Gallbladder sludge in the gallbladder fundus. No evidence of cholelithiasis. No sonographic evidence for acute cholecystitis. (3) Hypokalemia Assessment/Plan: Patient's electrolytes are being followed and repleted as needed (4) Hypomagnesemia Assessment/Plan: Monitor and replete if necessary (5) Urinary tract infection Qualifiers: Urinary tract infection type: acute cystitis Hematuria presence: without hematuria Qualified Code(s): N30.00 - Acute cystitis without hematuria Assessment/Plan: Currently on Macrobid. Urine culture reveals E. coli which is sensitive to Macrobid so we will continue - Current Meds Current Meds: Current Medications Generic Name Dose Route Start Last Admin Trade Name Freq PRN Reason Stop Dose Admin Acetaminophen 650 mg 10/26/22 10:39 10/28/22 19:00 Acetaminophen 325 Mg Tablet PO 650 mg Q4HR PRN Administration Pain 1 to 4, or Fever Calcium Carbonate/Glycine 500 mg 10/29/22 09:00 10/29/22 09:18 Calcium Carbonate Chew 500 Mg Tablet PO 500 mg BID INGA Administration Chlordiazepoxide HCl 25 mg 10/27/22 19:00 10/29/22 11:20 Chlordiazepoxide 25 Mg Capsule PO 25 mg Q8H INGA Administration Enoxaparin Sodium 40 mg 10/27/22 09:00 10/29/22 09:19 Enoxaparin 40 Mg/0.4 Ml Syringe SUBQ 40 mg DAILY INGA Administration Sodium Chloride 1,000 mls @ 100 mls/hr 10/26/22 11:00 10/29/22 11:20 Normal Saline 0.9% IV 100 mls/hr .Q10H INGA Administration Lorazepam 1 mg 10/26/22 10:46 10/27/22 08:47 Lorazepam 2 Mg/Ml Vial IVP 1 mg Q30M PRN Administration CIWA >8 Protocol Metoprolol Tartrate 25 mg 10/26/22 14:03 10/29/22 09:18 Metoprolol Tartrate 25 Mg Tablet PO 25 mg BID INGA Administration Nitrofurantoin 100 mg 10/27/22 09:00 10/29/22 09:19 Nitrofurantoin Macro 100 Mg Capsule PO 100 mg BID INGA Administration Polyethylene Glycol 17 gm 10/28/22 18:00 10/29/22 09:22 Polyethylene Glycol 3350 17 Gm Packet PO Not Given DAILY INGA Multivit/Folic Acid/Iron 1 tab 10/26/22 11:00 10/29/22 09:19 Vitamin Tablet PO 1 tab DAILY INGA Administration Sodium Chloride 10 ml 10/26/22 10:39 10/27/22 00:16 Sodium Chloride Flush 0.9% 10 Ml Syringe IVP 10 ml PRN PRN Administration NEEDED PER PROVIDER ORDERS Sodium Chloride 10 ml 10/26/22 17:00 10/29/22 09:19 Sodium Chloride Flush 0.9% 10 Ml Syringe IVP 10 ml 0100,0900,1700 INGA Administration Thiamine HCl 100 mg 10/26/22 11:00 10/29/22 09:19 Thiamine 100 Mg Tablet PO 100 mg DAILY INGA Administration - Lab Result Fish Bone Diagrams: 10/29/22 04:50 10/29/22 04:50 - Diagnostic Imaging Results Diagnostic Imaging Results: Final report reviewed - Additional Planning My Orders: My Active Orders 10/29/22 09:00 Calcium Carbonate [Tums] 500 mg PO BID 10/29/22 Dinner DIET [Regular Diet] [DIET] Plan Discussed with:: Patient Time Spent: 15-30 minutes Objective Vital Signs: Vital Signs - 24 hr 10/28/22 10/28/22 10/29/22 20:46 20:49 00:41 Temperature 36.6 C 36.7 C Heart Rate [ 82 82 Brachial] Respiratory 16 18 Rate Blood Pressure 121/94 H Blood Pressure 121/94 H 125/96 H [Right Brachial artery] O2 Saturation 99 100 10/29/22 10/29/22 10/29/22 04:44 05:00 09:00 Temperature 36.8 C 36.8 C Heart Rate [ 84 90 Brachial] Respiratory 18 18 Rate Blood Pressure Blood Pressure 139/101 H 130/90 H 121/96 H [Right Brachial artery] O2 Saturation 99 100 10/29/22 10/29/22 10/29/22 09:18 12:16 16:06 Temperature 36.6 C 36.7 C Heart Rate [ 94 83 Brachial] Respiratory 18 20 Rate Blood Pressure 121/96 H Blood Pressure 121/90 H 143/97 H [Right Brachial artery] O2 Saturation 99 98 Oxygen O2 Source Room air I&O (Last 24 Hrs): Intake and Output Totals x24h 10/27/22 10/28/22 10/29/22 23:59 23:59 23:59 Intake Total 1999 2675 1680 Output Total 800 1000 Balance 1200 1675 1680 - Results Results: Laboratory Results WBC 5.6 x10^3/uL (4.8-10.8) 10/29/22 04:50 RBC 3.25 10^6/uL (4.20-5.40) L 10/29/22 04:50 Hgb 10.7 g/dL (12.0-16.0) L 10/29/22 04:50 Hct 33.8 % (37.0-47.0) L 10/29/22 04:50 MCV 104.0 fL (81.0-99.0) H 10/29/22 04:50 MCH 32.9 pg (27.0-31.0) H 10/29/22 04:50 MCHC 31.7 g/dL (32.0-36.0) L 10/29/22 04:50 RDW 17.3 % (12.0-15.0) H 10/29/22 04:50 Plt Count 244 10^3/uL (130-450) 10/29/22 04:50 MPV 9.1 fL (7.9-10.8) 10/29/22 04:50 Neut # (Auto) 3.7 10^3/uL (1.5-6.6) 10/29/22 04:50 Lymph # (Auto) 1.0 10^3/uL (1.5-3.5) L 10/29/22 04:50 [place] # (Auto) 0.8 10^3/uL (0.0-1.0) 10/29/22 04:50 Eos # (Auto) 0.1 10^3/uL (0.0-0.7) 10/29/22 04:50 Baso # (Auto) 0.1 10^3/uL (0.0-0.1) 10/29/22 04:50 Absolute Nucleated RBC 0.00 x10^3/uL 10/29/22 04:50 Nucleated RBC % 0.0 /100WBC 10/29/22 04:50 PT 12.5 secs (9.9-12.6) 10/25/22 17:11 INR 1.1 (0.8-1.2) 10/25/22 17:11 Sodium 136 mmol/L (135-145) 10/29/22 04:50 Potassium 3.6 mmol/L (3.5-5.0) 10/29/22 04:50 Chloride 112 mmol/L (101-111) H 10/29/22 04:50 Carbon Dioxide 17 mmol/L (21-32) L 10/29/22 04:50 Anion Gap 7.0 (6-13) 10/29/22 04:50 BUN < 5 mg/dL (6-20) L 10/29/22 04:50 Creatinine 0.4 mg/dL (0.4-1.0) 10/29/22 04:50 Estimated GFR (MDRD) 174 (>89) 10/29/22 04:50 Glucose 89 mg/dL (70-100) 10/29/22 04:50 Lactic Acid 0.9 mmol/L (0.5-2.2) 10/26/22 05:21 Calcium 7.8 mg/dL (8.5-10.3) L 10/29/22 04:50 Phosphorus 2.5 mg/dL (2.5-4.6) 10/27/22 05:33 Magnesium 1.6 mg/dL (1.7-2.8) L 10/29/22 04:50 Total Bilirubin 2.2 mg/dL (0.2-1.0) H 10/26/22 05:21 AST 78 IU/L (10-42) H 10/26/22 05:21 ALT 27 IU/L (10-60) 10/26/22 05:21 Alkaline Phosphatase 127 IU/L (42-121) H 10/26/22 05:21 Ammonia 45.9 umol/L (7-35) H 10/26/22 03:27 Total Creatine Kinase 60 IU/L (22-269) 10/25/22 17:11 Total Protein 5.6 g/dL (6.7-8.2) L 10/26/22 05:21 Albumin 2.8 g/dL (3.2-5.5) L 10/26/22 05:21 Globulin 2.8 g/dL (2.1-4.2) 10/26/22 05:21 Albumin/Globulin Ratio 1.0 (1.0-2.2) 10/26/22 05:21 Lipase 88 U/L (22-51) H 10/26/22 05:21 Serum HCG, Qual NEGATIVE 10/29/22 04:50 Urine Color YELLOW 10/26/22 03:36 Urine Clarity SL. CLOUDY (CLEAR) 10/26/22 03:36 Urine pH 6.5 PH (5.0-7.5) 10/26/22 03:36 Ur Specific [place] 1.015 (1.002-1.030) 10/26/22 03:36 Urine Protein NEGATIVE mg/dL (NEGATIVE) 10/26/22 03:36 Urine Glucose (UA) NEGATIVE mg/dL (NEGATIVE) 10/26/22 03:36 Urine Ketones NEGATIVE mg/dL (NEGATIVE) 10/26/22 03:36 Urine Occult Blood NEGATIVE (NEGATIVE) 10/26/22 03:36 Urine Nitrite NEGATIVE (NEGATIVE) 10/26/22 03:36 Urine Bilirubin NEGATIVE (NEGATIVE) 10/26/22 03:36 Urine Urobilinogen 2 E.U./dL (NORMAL) H 10/26/22 03:36 Ur Leukocyte Esterase LARGE (NEGATIVE) H 10/26/22 03:36 Urine RBC 0-5 /HPF (0-5) 10/26/22 03:36 Urine WBC >25 /HPF (0-5) H 10/26/22 03:36 Ur Squamous Epith Cells FEW Squamous (<= Few) 10/26/22 03:36 Urine Bacteria Many /HPF (None Seen) H 10/26/22 03:36 Ur Microscopic Review INDICATED 10/26/22 03:36 Urine Culture Comments INDICATED 10/26/22 03:36 Urine HCG, Qual NEGATIVE 10/26/22 03:36 Nasal Adenovirus (PCR) NOT DETECTED 10/25/22 18:12 Nasal B. parapertussis DNA (PCR) NOT DETECTED 10/25/22 18:12 Nasal Coronavir 229E PCR NOT DETECTED 10/25/22 18:12 Nasal Coronavir HKU1 PCR NOT DETECTED 10/25/22 18:12 Nasal Coronavir NL63 PCR NOT DETECTED 10/25/22 18:12 Nasal Coronavir OC43 PCR NOT DETECTED 10/25/22 18:12 Nasal Enterovir/Rhinovir PCR NOT DETECTED 10/25/22 18:12 Nasal Influenza B PCR NOT DETECTED 10/25/22 18:12 Nasal Influenza A PCR NOT DETECTED 10/25/22 18:12 Nasal Parainfluen 1 PCR NOT DETECTED 10/25/22 18:12 Nasal Parainfluen 2 PCR NOT DETECTED 10/25/22 18:12 Nasal Parainfluen 3 PCR NOT DETECTED 10/25/22 18:12 Nasal Parainfluen 4 PCR NOT DETECTED 10/25/22 18:12 Nasal RSV (PCR) NOT DETECTED 10/25/22 18:12 Nasal B.pertussis DNA PCR NOT DETECTED 10/25/22 18:12 Nasal C.pneumoniae (PCR) NOT DETECTED 10/25/22 18:12 [place] Human Metapneumo PCR NOT DETECTED 10/25/22 18:12 Nasal M.pneumoniae (PCR) NOT DETECTED 10/25/22 18:12 Nasal SARS-CoV-2 (PCR) NOT DETECTED 10/25/22 18:12 Urine Opiates Screen NEGATIVE (NEGATIVE) 10/26/22 03:36 Ur Oxycodone Screen NEGATIVE (NEGATIVE) 10/26/22 03:36 Urine Methadone Screen NEGATIVE (NEGATIVE) 10/26/22 03:36 Ur Propoxyphene Screen NEGATIVE (NEGATIVE) 10/26/22 03:36 Ur Barbiturates Screen NEGATIVE (NEGATIVE) 10/26/22 03:36 Ur Tricyclics Screen NEGATIVE (NEGATIVE) 10/26/22 03:36 Ur Phencyclidine Scrn NEGATIVE (NEGATIVE) 10/26/22 03:36 Ur Amphetamine Screen NEGATIVE (NEGATIVE) 10/26/22 03:36 U Methamphetamines Scrn NEGATIVE (NEGATIVE) 10/26/22 03:36 U Benzodiazepines Scrn POSITIVE (NEGATIVE) H 10/26/22 03:36 Urine Cocaine Screen NEGATIVE (NEGATIVE) 10/26/22 03:36 U Cannabinoids Screen NEGATIVE (NEGATIVE) 10/26/22 03:36 Ethyl Alcohol < 5.0 mg/dL 10/25/22 17:11 Hepatitis A IgM Ab Negative (Negative) 10/27/22 09:37 Hep Bs Antigen Negative (Negative) 10/27/22 09:37 Hep B Core IgM Ab Negative (Negative) 10/27/22 09:37 Hepatitis C Antibody Non Reactive (Non Reactive) 10/27/22 09:37 Hepatitis C Interp Comment (.) 10/27/22 09:37 ABX Reporting Has patient been on IV antibiotics over the past 48 hours?: No
[2022-10-29] MEDS: ACETAMINOPHEN 325 MG TABLET PO PRN (18:19)
[2022-10-29] MEDS ORDERED: MAGNESIUM SULFATE 2 GRAM 2 GM/50 ML BAG IV ONE (19:03)
[2022-10-30] MEDS: SODIUM CHLORIDE FLUSH 0.9% 10 ML SYRINGE IVP SCH ×3 (04:51→17:21)
[2022-10-30] MEDS: ACETAMINOPHEN 325 MG TABLET PO PRN ×2 (04:51→17:20)
[2022-10-30] MEDS: chlordiazePOXIDE 25 MG CAPSULE PO SCH (04:51)
[2022-10-30 05:02] LABS: BASOPHILS % (AUTO) 0.7 %; EOSINOPHILS # (AUTO) 0.1 10^3/uL (0.0-0.7); EOSINOPHILS % (AUTO) 1.3 %; HCT - HEMATOCRIT 35.6 % (37.0-47.0); HGB - HEMOGLOBIN 11.3 g/dL (12.0-16.0); LYMPHOCYTES # (AUTO) 1.1 10^3/uL (1.5-3.5); LYMPHOCYTES % (AUTO) 17.6 %; MEAN CORPUSCULAR HEMOGLOBIN 33.1 pg (27.0-31.0); MEAN CORPUSCULAR HGB CONC 31.7 g/dL (32.0-36.0); MEAN CORPUSCULAR VOLUME 104.4 fL (81.0-99.0); MONOCYTES # (AUTO) 0.7 10^3/uL (0.0-1.0); MONOCYTES % (AUTO) 12.4 %; NEUTROPHILS % (AUTO) 67.3 %; PLT - PLATELET COUNT 275 10^3/uL (130-450); RED BLOOD COUNT 3.41 10^6/uL (4.20-5.40); RED CELL DISTRIBUTION WIDTH 17.6 % (12.0-15.0)
[2022-10-30 05:16] LABS: BUN - BLOOD UREA NITROGEN < 5 mg/dL (6-20); CALCIUM 7.8 mg/dL (8.5-10.3); CARBON DIOXIDE - CO2 21 mmol/L (21-32); CHLORIDE 114 mmol/L (101-111); CREATININE 0.5 mg/dL (0.4-1.0); GFR - MDRD 135 (>89); GLUCOSE 86 mg/dL (70-100); POTASSIUM 3.1 mmol/L (3.5-5.0); SODIUM 140 mmol/L (135-145)
[2022-10-30] MEDS ORDERED: POTASSIUM CHLORIDE 20 MEQ TABLET PO ONE (07:42)
[2022-10-30] MEDS: THIAMINE 100 MG TABLET PO SCH (09:06)
[2022-10-30] MEDS: CALCIUM CARBONATE CHEW 500 MG TABLET PO SCH ×2 (09:06→20:28)
[2022-10-30] MEDS: NITROFURANTOIN MACRO 100 MG CAPSULE PO SCH ×2 (09:06→20:27)
[2022-10-30] MEDS: PRENATAL VITAMIN TABLET PO SCH (09:06)
[2022-10-30] MEDS: METOPROLOL TARTRATE 25 MG TABLET PO SCH ×2 (09:06→20:27)
[2022-10-30] MEDS: ENOXAPARIN 40 MG/0.4 ML SYRINGE SUBQ SCH (09:07)
[2022-10-30] MEDS: polyethylene glycoL 3350 17 GM PACKET PO SCH (09:08)
[2022-10-30] MEDS: SODIUM CHLORIDE 0.9% 1,000 ML IV SCH ×2 (09:13→19:09)
--- NOTE | 2022-10-30 13:06 | PROVIDER PROGRESS NOTE ---
Progress Note Subjective: Patient is more alert today took a shower earlier today. Objective: Vital signs stable and reviewed Head: Normocephalic atraumatic Eyes: PERRLA DC EOMI Mouth: No lesions Neck: Supple Chest: Clear to auscultation Cor: Regular rate and rhythm S1-S2 Abdomen: Soft nontender bowel sounds present Extremities: No pedal edema : Neuro: Alert and oriented x3, motor strength intact bilaterally Assessment/Plan - Problem List (1) Alcohol withdrawal delirium Assessment/Plan: Patient currently is on scheduled Librium and gradually improving still has intermittently some mild confusion and slower to react and some mild tremors but is markedly improved from admission. -Clinically improving and will decrease Librium from 25 3 times daily to 10 mg 3 times daily -Patient is can a week and will need physical therapy to clear to discharge to home (2) Alcoholic hepatitis Qualifiers: Ascites presence: without ascites Qualified Code(s): K70.10 - Alcoholic hepatitis without ascites Assessment/Plan: Has hepatic steatosis without focal intrahepatic abnormalities. Gallbladder sludge in the gallbladder fundus. No evidence of cholelithiasis. No sonographic evidence for acute cholecystitis. (3) Hypokalemia Assessment/Plan: Patient's electrolytes are being followed and repleted as needed (4) Hypomagnesemia Assessment/Plan: Monitor and replete if necessary (5) Urinary tract infection Qualifiers: Urinary tract infection type: acute cystitis Hematuria presence: without hematuria Qualified Code(s): N30.00 - Acute cystitis without hematuria Assessment/Plan: Currently on Macrobid. Urine culture reveals E. coli which is sensitive to Macrobid so we will continue - Current Meds Current Meds: Current Medications Generic Name Dose Route Start Last Admin Trade Name Freq PRN Reason Stop Dose Admin Acetaminophen 650 mg 10/26/22 10:39 10/28/22 19:00 Acetaminophen 325 Mg Tablet PO 650 mg Q4HR PRN Administration Pain 1 to 4, or Fever Calcium Carbonate/Glycine 500 mg 10/29/22 09:00 10/29/22 09:18 Calcium Carbonate Chew 500 Mg Tablet PO 500 mg BID INGA Administration Chlordiazepoxide HCl 25 mg 10/27/22 19:00 10/29/22 11:20 Chlordiazepoxide 25 Mg Capsule PO 25 mg Q8H INGA Administration Enoxaparin Sodium 40 mg 10/27/22 09:00 10/29/22 09:19 Enoxaparin 40 Mg/0.4 Ml Syringe SUBQ 40 mg DAILY INGA Administration Sodium Chloride 1,000 mls @ 100 mls/hr 10/26/22 11:00 10/29/22 11:20 Normal Saline 0.9% IV 100 mls/hr .Q10H INGA Administration Lorazepam 1 mg 10/26/22 10:46 10/27/22 08:47 Lorazepam 2 Mg/Ml Vial IVP 1 mg Q30M PRN Administration CIWA >8 Protocol Metoprolol Tartrate 25 mg 10/26/22 14:03 10/29/22 09:18 Metoprolol Tartrate 25 Mg Tablet PO 25 mg BID INGA Administration Nitrofurantoin 100 mg 10/27/22 09:00 10/29/22 09:19 Nitrofurantoin Macro 100 Mg Capsule PO 100 mg BID INGA Administration Polyethylene Glycol 17 gm 10/28/22 18:00 10/29/22 09:22 Polyethylene Glycol 3350 17 Gm Packet PO Not Given DAILY INGA Multivit/Folic Acid/Iron 1 tab 10/26/22 11:00 10/29/22 09:19 Vitamin Tablet PO 1 tab DAILY INGA Administration Sodium Chloride 10 ml 10/26/22 10:39 10/27/22 00:16 Sodium Chloride Flush 0.9% 10 Ml Syringe IVP 10 ml PRN PRN Administration NEEDED PER PROVIDER ORDERS Sodium Chloride 10 ml 10/26/22 17:00 10/29/22 09:19 Sodium Chloride Flush 0.9% 10 Ml Syringe IVP 10 ml 0100,0900,1700 INGA Administration Thiamine HCl 100 mg 10/26/22 11:00 10/29/22 09:19 Thiamine 100 Mg Tablet PO 100 mg DAILY INGA Administration - Lab Result Fish Bone Diagrams: 10/29/22 04:50 10/29/22 04:50 - Diagnostic Imaging Results Diagnostic Imaging Results: Final report reviewed - Additional Planning My Orders: My Active Orders 10/29/22 09:00 Calcium Carbonate [Tums] 500 mg PO BID 10/29/22 Dinner DIET [Regular Diet] [DIET] Plan Discussed with:: Patient Time Spent: 15-30 minutes Objective Vital Signs: Vital Signs - 24 hr 10/28/22 10/28/22 10/29/22 20:46 20:49 00:41 Temperature 36.6 C 36.7 C Heart Rate [ 82 82 Brachial] Respiratory 16 18 Rate Blood Pressure 121/94 H Blood Pressure 121/94 H 125/96 H [Right Brachial artery] O2 Saturation 99 100 10/29/22 10/29/22 10/29/22 04:44 05:00 09:00 Temperature 36.8 C 36.8 C Heart Rate [ 84 90 Brachial] Respiratory 18 18 Rate Blood Pressure Blood Pressure 139/101 H 130/90 H 121/96 H [Right Brachial artery] O2 Saturation 99 100 10/29/22 10/29/22 10/29/22 09:18 12:16 16:06 Temperature 36.6 C 36.7 C Heart Rate [ 94 83 Brachial] Respiratory 18 20 Rate Blood Pressure 121/96 H Blood Pressure 121/90 H 143/97 H [Right Brachial artery] O2 Saturation 99 98 Oxygen O2 Source Room air I&O (Last 24 Hrs): Intake and Output Totals x24h 10/27/22 10/28/22 10/29/22 23:59 23:59 23:59 Intake Total 1999 2675 1680 Output Total 800 1000 Balance 1200 1675 1680 - Results Results: Laboratory Results WBC 5.6 x10^3/uL (4.8-10.8) 10/29/22 04:50 RBC 3.25 10^6/uL (4.20-5.40) L 10/29/22 04:50 Hgb 10.7 g/dL (12.0-16.0) L 10/29/22 04:50 Hct 33.8 % (37.0-47.0) L 10/29/22 04:50 MCV 104.0 fL (81.0-99.0) H 10/29/22 04:50 MCH 32.9 pg (27.0-31.0) H 10/29/22 04:50 MCHC 31.7 g/dL (32.0-36.0) L 10/29/22 04:50 RDW 17.3 % (12.0-15.0) H 10/29/22 04:50 Plt Count 244 10^3/uL (130-450) 10/29/22 04:50 MPV 9.1 fL (7.9-10.8) 10/29/22 04:50 Neut # (Auto) 3.7 10^3/uL (1.5-6.6) 10/29/22 04:50 Lymph # (Auto) 1.0 10^3/uL (1.5-3.5) L 10/29/22 04:50 [place] # (Auto) 0.8 10^3/uL (0.0-1.0) 10/29/22 04:50 Eos # (Auto) 0.1 10^3/uL (0.0-0.7) 10/29/22 04:50 Baso # (Auto) 0.1 10^3/uL (0.0-0.1) 10/29/22 04:50 Absolute Nucleated RBC 0.00 x10^3/uL 10/29/22 04:50 Nucleated RBC % 0.0 /100WBC 10/29/22 04:50 PT 12.5 secs (9.9-12.6) 10/25/22 17:11 INR 1.1 (0.8-1.2) 10/25/22 17:11 Sodium 136 mmol/L (135-145) 10/29/22 04:50 Potassium 3.6 mmol/L (3.5-5.0) 10/29/22 04:50 Chloride 112 mmol/L (101-111) H 10/29/22 04:50 Carbon Dioxide 17 mmol/L (21-32) L 10/29/22 04:50 Anion Gap 7.0 (6-13) 10/29/22 04:50 BUN < 5 mg/dL (6-20) L 10/29/22 04:50 Creatinine 0.4 mg/dL (0.4-1.0) 10/29/22 04:50 Estimated GFR (MDRD) 174 (>89) 10/29/22 04:50 Glucose 89 mg/dL (70-100) 10/29/22 04:50 Lactic Acid 0.9 mmol/L (0.5-2.2) 10/26/22 05:21 Calcium 7.8 mg/dL (8.5-10.3) L 10/29/22 04:50 Phosphorus 2.5 mg/dL (2.5-4.6) 10/27/22 05:33 Magnesium 1.6 mg/dL (1.7-2.8) L 10/29/22 04:50 Total Bilirubin 2.2 mg/dL (0.2-1.0) H 10/26/22 05:21 AST 78 IU/L (10-42) H 10/26/22 05:21 ALT 27 IU/L (10-60) 10/26/22 05:21 Alkaline Phosphatase 127 IU/L (42-121) H 10/26/22 05:21 Ammonia 45.9 umol/L (7-35) H 10/26/22 03:27 Total Creatine Kinase 60 IU/L (22-269) 10/25/22 17:11 Total Protein 5.6 g/dL (6.7-8.2) L 10/26/22 05:21 Albumin 2.8 g/dL (3.2-5.5) L 10/26/22 05:21 Globulin 2.8 g/dL (2.1-4.2) 10/26/22 05:21 Albumin/Globulin Ratio 1.0 (1.0-2.2) 10/26/22 05:21 Lipase 88 U/L (22-51) H 10/26/22 05:21 Serum HCG, Qual NEGATIVE 10/29/22 04:50 Urine Color YELLOW 10/26/22 03:36 Urine Clarity SL. CLOUDY (CLEAR) 10/26/22 03:36 Urine pH 6.5 PH (5.0-7.5) 10/26/22 03:36 Ur Specific [place] 1.015 (1.002-1.030) 10/26/22 03:36 Urine Protein NEGATIVE mg/dL (NEGATIVE) 10/26/22 03:36 Urine Glucose (UA) NEGATIVE mg/dL (NEGATIVE) 10/26/22 03:36 Urine Ketones NEGATIVE mg/dL (NEGATIVE) 10/26/22 03:36 Urine Occult Blood NEGATIVE (NEGATIVE) 10/26/22 03:36 Urine Nitrite NEGATIVE (NEGATIVE) 10/26/22 03:36 Urine Bilirubin NEGATIVE (NEGATIVE) 10/26/22 03:36 Urine Urobilinogen 2 E.U./dL (NORMAL) H 10/26/22 03:36 Ur Leukocyte Esterase LARGE (NEGATIVE) H 10/26/22 03:36 Urine RBC 0-5 /HPF (0-5) 10/26/22 03:36 Urine WBC >25 /HPF (0-5) H 10/26/22 03:36 Ur Squamous Epith Cells FEW Squamous (<= Few) 10/26/22 03:36 Urine Bacteria Many /HPF (None Seen) H 10/26/22 03:36 Ur Microscopic Review INDICATED 10/26/22 03:36 Urine Culture Comments INDICATED 10/26/22 03:36 Urine HCG, Qual NEGATIVE 10/26/22 03:36 Nasal Adenovirus (PCR) NOT DETECTED 10/25/22 18:12 Nasal B. parapertussis DNA (PCR) NOT DETECTED 10/25/22 18:12 Nasal Coronavir 229E PCR NOT DETECTED 10/25/22 18:12 Nasal Coronavir HKU1 PCR NOT DETECTED 10/25/22 18:12 Nasal Coronavir NL63 PCR NOT DETECTED 10/25/22 18:12 Nasal Coronavir OC43 PCR NOT DETECTED 10/25/22 18:12 Nasal Enterovir/Rhinovir PCR NOT DETECTED 10/25/22 18:12 Nasal Influenza B PCR NOT DETECTED 10/25/22 18:12 Nasal Influenza A PCR NOT DETECTED 10/25/22 18:12 Nasal Parainfluen 1 PCR NOT DETECTED 10/25/22 18:12 Nasal Parainfluen 2 PCR NOT DETECTED 10/25/22 18:12 Nasal Parainfluen 3 PCR NOT DETECTED 10/25/22 18:12 Nasal Parainfluen 4 PCR NOT DETECTED 10/25/22 18:12 Nasal RSV (PCR) NOT DETECTED 10/25/22 18:12 Nasal B.pertussis DNA PCR NOT DETECTED 10/25/22 18:12 Nasal C.pneumoniae (PCR) NOT DETECTED 10/25/22 18:12 [place] Human Metapneumo PCR NOT DETECTED 10/25/22 18:12 Nasal M.pneumoniae (PCR) NOT DETECTED 10/25/22 18:12 Nasal SARS-CoV-2 (PCR) NOT DETECTED 10/25/22 18:12 Urine Opiates Screen NEGATIVE (NEGATIVE) 10/26/22 03:36 Ur Oxycodone Screen NEGATIVE (NEGATIVE) 10/26/22 03:36 Urine Methadone Screen NEGATIVE (NEGATIVE) 10/26/22 03:36 Ur Propoxyphene Screen NEGATIVE (NEGATIVE) 10/26/22 03:36 Ur Barbiturates Screen NEGATIVE (NEGATIVE) 10/26/22 03:36 Ur Tricyclics Screen NEGATIVE (NEGATIVE) 10/26/22 03:36 Ur Phencyclidine Scrn NEGATIVE (NEGATIVE) 10/26/22 03:36 Ur Amphetamine Screen NEGATIVE (NEGATIVE) 10/26/22 03:36 U Methamphetamines Scrn NEGATIVE (NEGATIVE) 10/26/22 03:36 U Benzodiazepines Scrn POSITIVE (NEGATIVE) H 10/26/22 03:36 Urine Cocaine Screen NEGATIVE (NEGATIVE) 10/26/22 03:36 U Cannabinoids Screen NEGATIVE (NEGATIVE) 10/26/22 03:36 Ethyl Alcohol < 5.0 mg/dL 10/25/22 17:11 Hepatitis A IgM Ab Negative (Negative) 10/27/22 09:37 Hep Bs Antigen Negative (Negative) 10/27/22 09:37 Hep B Core IgM Ab Negative (Negative) 10/27/22 09:37 Hepatitis C Antibody Non Reactive (Non Reactive) 10/27/22 09:37 Hepatitis C Interp Comment (.) 10/27/22 09:37 ABX Reporting Has patient been on IV antibiotics over the past 48 hours?: No
[2022-10-30] MEDS: chlordiazePOXIDE 5 MG CAPSULE PO SCH ×2 (13:47→20:27)
[2022-10-31] MEDS: SODIUM CHLORIDE FLUSH 0.9% 10 ML SYRINGE IVP SCH ×3 (02:54→21:40)
[2022-10-31] MEDS: SODIUM CHLORIDE 0.9% 1,000 ML IV SCH (05:09)
[2022-10-31] MEDS: chlordiazePOXIDE 5 MG CAPSULE PO SCH ×3 (05:09→21:40)
[2022-10-31 05:12] LABS: BUN - BLOOD UREA NITROGEN < 5 mg/dL (6-20); CARBON DIOXIDE - CO2 23 mmol/L (21-32); CHLORIDE 108 mmol/L (101-111); CREATININE 0.3 mg/dL (0.4-1.0); GFR - MDRD 243 (>89); GLUCOSE 92 mg/dL (70-100); POTASSIUM 3.2 mmol/L (3.5-5.0); SODIUM 140 mmol/L (135-145)
[2022-10-31] MEDS: PRENATAL VITAMIN TABLET PO SCH (08:54)
[2022-10-31] MEDS: NITROFURANTOIN MACRO 100 MG CAPSULE PO SCH ×2 (08:54→21:40)
[2022-10-31] MEDS: CALCIUM CARBONATE CHEW 500 MG TABLET PO SCH ×2 (08:54→21:40)
[2022-10-31] MEDS: METOPROLOL TARTRATE 25 MG TABLET PO SCH ×2 (08:54→21:40)
[2022-10-31] MEDS: polyethylene glycoL 3350 17 GM PACKET PO SCH (08:55)
[2022-10-31] MEDS: POTASSIUM CHLORIDE 20 MEQ TABLET PO SCH (08:55)
[2022-10-31] MEDS: ENOXAPARIN 40 MG/0.4 ML SYRINGE SUBQ SCH (08:55)
[2022-10-31] MEDS: THIAMINE 100 MG TABLET PO SCH (08:56)
[2022-10-31] MEDS: amLODIPine 5 MG TABLET PO SCH (11:57)
[2022-10-31] MEDS: oxyCODONE 5 MG TABLET PO PRN (14:48)
--- NOTE | 2022-10-31 15:02 | PROVIDER PROGRESS NOTE ---
Assessment/Plan - Problem List (1) Alcohol withdrawal delirium Assessment/Plan: Patient is on schedule Librium with titration decreasing. Patient has been evaluated by physical therapy today and there is some concern regarding her strength and able to ambulate and use stairs which she has at home so we will proceed with keeping her here at least until she can go for safe discharge hopefully in the next day. (2) Alcoholic hepatitis Qualifiers: Ascites presence: without ascites Qualified Code(s): K70.10 - Alcoholic hepatitis without ascites (3) Hypokalemia Assessment/Plan: Has been stable and replete as necessary (4) Hypomagnesemia Assessment/Plan: Resolved (5) Urinary tract infection Qualifiers: Urinary tract infection type: acute cystitis Hematuria presence: without hematuria Qualified Code(s): N30.00 - Acute cystitis without hematuria Assessment/Plan: Found to have UTI and has completed course of Macrobid for E. coli which is sensitive to Macrobid. - Current Meds Current Meds: Current Medications Generic Name Dose Route Start Last Admin Trade Name Freq PRN Reason Stop Dose Admin Acetaminophen 650 mg 10/26/22 10:39 10/30/22 17:20 Acetaminophen 325 Mg Tablet PO 650 mg Q4HR PRN Administration Pain 1 to 4, or Fever Amlodipine Besylate 5 mg 10/31/22 11:00 10/31/22 11:57 Amlodipine 5 Mg Tablet PO 5 mg DAILY INGA Administration Calcium Carbonate/Glycine 500 mg 10/29/22 09:00 10/31/22 08:54 Calcium Carbonate Chew 500 Mg Tablet PO 500 mg BID INGA Administration Chlordiazepoxide HCl 10 mg 10/30/22 13:00 10/31/22 13:55 Chlordiazepoxide 5 Mg Capsule PO 10 mg Q8H INGA Administration Enoxaparin Sodium 40 mg 10/27/22 09:00 10/31/22 08:55 Enoxaparin 40 Mg/0.4 Ml Syringe SUBQ 40 mg DAILY INGA Administration Lorazepam 1 mg 10/26/22 10:46 10/27/22 08:47 Lorazepam 2 Mg/Ml Vial IVP 1 mg Q30M PRN Administration CIWA >8 Protocol Metoprolol Tartrate 25 mg 10/26/22 14:03 10/31/22 08:54 Metoprolol Tartrate 25 Mg Tablet PO 25 mg BID INGA Administration Nitrofurantoin 100 mg 10/27/22 09:00 10/31/22 08:54 Nitrofurantoin Macro 100 Mg Capsule PO 10/31/22 23:59 100 mg BID INGA Administration Oxycodone HCl 5 mg 10/26/22 10:39 10/31/22 14:48 Oxycodone 5 Mg Tablet PO 5 mg Q4HR PRN Administration Pain 5 to 7 Polyethylene Glycol 17 gm 10/28/22 18:00 10/31/22 08:55 Polyethylene Glycol 3350 17 Gm Packet PO Not Given DAILY INGA Potassium Chloride 20 meq 10/31/22 08:00 10/31/22 08:55 Potassium Chloride 20 Meq Tablet PO 20 meq DAILYWM INGA Administration Multivit/Folic Acid/Iron 1 tab 10/26/22 11:00 10/31/22 08:54 Vitamin Tablet PO 1 tab DAILY INGA Administration Sodium Chloride 10 ml 10/26/22 10:39 10/27/22 00:16 Sodium Chloride Flush 0.9% 10 Ml Syringe IVP 10 ml PRN PRN Administration NEEDED PER PROVIDER ORDERS Sodium Chloride 10 ml 10/26/22 17:00 10/31/22 08:55 Sodium Chloride Flush 0.9% 10 Ml Syringe IVP Not Given 0100,0900,1700 INGA Thiamine HCl 100 mg 10/26/22 11:00 10/31/22 08:56 Thiamine 100 Mg Tablet PO 100 mg DAILY INGA Administration - Lab Result Fish Bone Diagrams: 10/30/22 04:54 10/31/22 04:51 - Additional Planning My Orders: My Active Orders 10/31/22 08:00 Potassium Chloride [K-Dur] 20 meq PO DAILYWM 10/31/22 11:00 amLODIPine [Norvasc] 5 mg PO DAILY Subjective - Subjective Patient Reports: Other (Appetite has markedly improved. She was evaluated by physical therapy and still is a bit tenuous with gait stability and PT will see tomorrow.) Objective Vital Signs: Vital Signs - 24 hr 10/30/22 10/30/22 10/30/22 16:08 20:07 20:27 Temperature 36.5 C 36.6 C Heart Rate [ 92 96 Brachial] Respiratory 20 20 Rate Blood Pressure 117/82 H Blood Pressure 133/98 H 117/82 H [Left Brachial artery] Blood Pressure 138/99 H [Right Brachial artery] O2 Saturation 99 98 10/30/22 10/31/22 10/31/22 23:41 04:58 07:50 Temperature 36.7 C 36.9 C 36.9 C Heart Rate [ 88 87 89 Brachial] Respiratory 20 20 19 Rate Blood Pressure Blood Pressure 130/98 H 151/108 H 141/105 H [Left Brachial artery] Blood Pressure [Right Brachial artery] O2 Saturation 98 100 98 10/31/22 10/31/22 10/31/22 08:54 13:00 13:05 Temperature 36.9 C Heart Rate [ 92 Brachial] Respiratory 19 Rate Blood Pressure 141/105 H Blood Pressure 137/104 H 130/110 H [Left Brachial artery] Blood Pressure [Right Brachial artery] O2 Saturation 98 Oxygen O2 Source Room air I&O (Last 24 Hrs): Intake and Output Totals x24h 10/29/22 10/30/22 10/31/22 23:59 23:59 23:59 Intake Total 3280.000 3021.333 2446.667 Output Total 975 Balance 3280.000 3021.333 1471.667 General: Alert, Oriented x3, No acute distress HEENT: Atraumatic Neck: Supple Neuro: Alert Cardiovascular: Regular rate Respiratory: No respiratory distress Abdomen: Normal bowel sounds Extremities: No edema - Results Results: Laboratory Results WBC 6.0 x10^3/uL (4.8-10.8) 10/30/22 04:54 RBC 3.41 10^6/uL (4.20-5.40) L 10/30/22 04:54 Hgb 11.3 g/dL (12.0-16.0) L 10/30/22 04:54 Hct 35.6 % (37.0-47.0) L 10/30/22 04:54 MCV 104.4 fL (81.0-99.0) H 10/30/22 04:54 MCH 33.1 pg (27.0-31.0) H 10/30/22 04:54 MCHC 31.7 g/dL (32.0-36.0) L 10/30/22 04:54 RDW 17.6 % (12.0-15.0) H 10/30/22 04:54 Plt Count 275 10^3/uL (130-450) 10/30/22 04:54 MPV 9.0 fL (7.9-10.8) 10/30/22 04:54 Neut # (Auto) 4.0 10^3/uL (1.5-6.6) 10/30/22 04:54 Lymph # (Auto) 1.1 10^3/uL (1.5-3.5) L 10/30/22 04:54 Coleman # (Auto) 0.7 10^3/uL (0.0-1.0) 10/30/22 04:54 Eos # (Auto) 0.1 10^3/uL (0.0-0.7) 10/30/22 04:54 Baso # (Auto) 0.0 10^3/uL (0.0-0.1) 10/30/22 04:54 Absolute Nucleated RBC 0.00 x10^3/uL 10/30/22 04:54 Nucleated RBC % 0.0 /100WBC 10/30/22 04:54 PT 12.5 secs (9.9-12.6) 10/25/22 17:11 INR 1.1 (0.8-1.2) 10/25/22 17:11 Sodium 140 mmol/L (135-145) 10/31/22 04:51 Potassium 3.2 mmol/L (3.5-5.0) L 10/31/22 04:51 Chloride 108 mmol/L (101-111) 10/31/22 04:51 Carbon Dioxide 23 mmol/L (21-32) 10/31/22 04:51 Anion Gap 9.0 (6-13) 10/31/22 04:51 BUN < 5 mg/dL (6-20) L 10/31/22 04:51 Creatinine 0.3 mg/dL (0.4-1.0) L 10/31/22 04:51 Estimated GFR (MDRD) 243 (>89) 10/31/22 04:51 Glucose 92 mg/dL (70-100) 10/31/22 04:51 Lactic Acid 0.9 mmol/L (0.5-2.2) 10/26/22 05:21 Calcium 8.0 mg/dL (8.5-10.3) L 10/31/22 04:51 Phosphorus 2.5 mg/dL (2.5-4.6) 10/27/22 05:33 Magnesium 2.0 mg/dL (1.7-2.8) 10/30/22 04:54 Total Bilirubin 2.2 mg/dL (0.2-1.0) H 10/26/22 05:21 AST 78 IU/L (10-42) H 10/26/22 05:21 ALT 27 IU/L (10-60) 10/26/22 05:21 Alkaline Phosphatase 127 IU/L (42-121) H 10/26/22 05:21 Ammonia 45.9 umol/L (7-35) H 10/26/22 03:27 Total Creatine Kinase 60 IU/L (22-269) 10/25/22 17:11 Total Protein 5.6 g/dL (6.7-8.2) L 10/26/22 05:21 Albumin 2.8 g/dL (3.2-5.5) L 10/26/22 05:21 Globulin 2.8 g/dL (2.1-4.2) 10/26/22 05:21 Albumin/Globulin Ratio 1.0 (1.0-2.2) 10/26/22 05:21 Lipase 88 U/L (22-51) H 10/26/22 05:21 Serum HCG, Qual NEGATIVE 10/29/22 04:50 Urine Color YELLOW 10/26/22 03:36 Urine Clarity SL. CLOUDY (CLEAR) 10/26/22 03:36 Urine pH 6.5 PH (5.0-7.5) 10/26/22 03:36 Ur Specific [place] 1.015 (1.002-1.030) 10/26/22 03:36 Urine Protein NEGATIVE mg/dL (NEGATIVE) 10/26/22 03:36 Urine Glucose (UA) NEGATIVE mg/dL (NEGATIVE) 10/26/22 03:36 Urine Ketones NEGATIVE mg/dL (NEGATIVE) 10/26/22 03:36 Urine Occult Blood NEGATIVE (NEGATIVE) 10/26/22 03:36 Urine Nitrite NEGATIVE (NEGATIVE) 10/26/22 03:36 Urine Bilirubin NEGATIVE (NEGATIVE) 10/26/22 03:36 Urine Urobilinogen 2 E.U./dL (NORMAL) H 10/26/22 03:36 Ur Leukocyte Esterase LARGE (NEGATIVE) H 10/26/22 03:36 Urine RBC 0-5 /HPF (0-5) 10/26/22 03:36 Urine WBC >25 /HPF (0-5) H 10/26/22 03:36 Ur Squamous Epith Cells FEW Squamous (<= Few) 10/26/22 03:36 Urine Bacteria Many /HPF (None Seen) H 10/26/22 03:36 Ur Microscopic Review INDICATED 10/26/22 03:36 Urine Culture Comments INDICATED 10/26/22 03:36 Urine HCG, Qual NEGATIVE 10/26/22 03:36 Nasal Adenovirus (PCR) NOT DETECTED 10/25/22 18:12 Nasal B. parapertussis DNA (PCR) NOT DETECTED 10/25/22 18:12 Nasal Coronavir 229E PCR NOT DETECTED 10/25/22 18:12 Nasal Coronavir HKU1 PCR NOT DETECTED 10/25/22 18:12 Nasal Coronavir NL63 PCR NOT DETECTED 10/25/22 18:12 Nasal Coronavir OC43 PCR NOT DETECTED 10/25/22 18:12 Nasal Enterovir/Rhinovir PCR NOT DETECTED 10/25/22 18:12 Nasal Influenza B PCR NOT DETECTED 10/25/22 18:12 Nasal Influenza A PCR NOT DETECTED 10/25/22 18:12 Nasal Parainfluen 1 PCR NOT DETECTED 10/25/22 18:12 Nasal Parainfluen 2 PCR NOT DETECTED 10/25/22 18:12 Nasal Parainfluen 3 PCR NOT DETECTED 10/25/22 18:12 Nasal Parainfluen 4 PCR NOT DETECTED 10/25/22 18:12 Nasal RSV (PCR) NOT DETECTED 10/25/22 18:12 Nasal B.pertussis DNA PCR NOT DETECTED 10/25/22 18:12 Nasal C.pneumoniae (PCR) NOT DETECTED 10/25/22 18:12 Gary Human Metapneumo PCR NOT DETECTED 10/25/22 18:12 Nasal M.pneumoniae (PCR) NOT DETECTED 10/25/22 18:12 Nasal SARS-CoV-2 (PCR) NOT DETECTED 10/25/22 18:12 Urine Opiates Screen NEGATIVE (NEGATIVE) 10/26/22 03:36 Ur Oxycodone Screen NEGATIVE (NEGATIVE) 10/26/22 03:36 Urine Methadone Screen NEGATIVE (NEGATIVE) 10/26/22 03:36 Ur Propoxyphene Screen NEGATIVE (NEGATIVE) 10/26/22 03:36 Ur Barbiturates Screen NEGATIVE (NEGATIVE) 10/26/22 03:36 Ur Tricyclics Screen NEGATIVE (NEGATIVE) 10/26/22 03:36 Ur Phencyclidine Scrn NEGATIVE (NEGATIVE) 10/26/22 03:36 Ur Amphetamine Screen NEGATIVE (NEGATIVE) 10/26/22 03:36 U Methamphetamines Scrn NEGATIVE (NEGATIVE) 10/26/22 03:36 U Benzodiazepines Scrn POSITIVE (NEGATIVE) H 10/26/22 03:36 Urine Cocaine Screen NEGATIVE (NEGATIVE) 10/26/22 03:36 U Cannabinoids Screen NEGATIVE (NEGATIVE) 10/26/22 03:36 Ethyl Alcohol < 5.0 mg/dL 10/25/22 17:11 Hepatitis A IgM Ab Negative (Negative) 10/27/22 09:37 Hep Bs Antigen Negative (Negative) 10/27/22 09:37 Hep B Core IgM Ab Negative (Negative) 10/27/22 09:37 Hepatitis C Antibody Non Reactive (Non Reactive) 10/27/22 09:37 Hepatitis C Interp Comment (.) 10/27/22 09:37 ABX Reporting Has patient been on IV antibiotics over the past 48 hours?: No
[2022-10-31] MEDS: ACETAMINOPHEN 325 MG TABLET PO PRN (21:40)
[2022-11-01] MEDS: oxyCODONE 5 MG TABLET PO PRN (00:17)
[2022-11-01] MEDS: SODIUM CHLORIDE FLUSH 0.9% 10 ML SYRINGE IVP SCH ×2 (00:19→09:55)
[2022-11-01] MEDS: chlordiazePOXIDE 5 MG CAPSULE PO SCH ×2 (04:38→13:00)
[2022-11-01] MEDS: ACETAMINOPHEN 325 MG TABLET PO PRN (04:38)
[2022-11-01] MEDS: POTASSIUM CHLORIDE 20 MEQ TABLET PO SCH (09:54)
[2022-11-01] MEDS: GABAPENTIN 300 MG CAPSULE PO SCH ×2 (09:54→13:00)
[2022-11-01] MEDS: amLODIPine 5 MG TABLET PO SCH (09:55)
[2022-11-01] MEDS: ENOXAPARIN 40 MG/0.4 ML SYRINGE SUBQ SCH (09:55)
[2022-11-01] MEDS: PRENATAL VITAMIN TABLET PO SCH (09:55)
[2022-11-01] MEDS: polyethylene glycoL 3350 17 GM PACKET PO SCH (09:55)
[2022-11-01] MEDS: CALCIUM CARBONATE CHEW 500 MG TABLET PO SCH (09:55)
[2022-11-01] MEDS: THIAMINE 100 MG TABLET PO SCH (09:55)
--- NOTE | 2022-11-01 11:36 | Discharge Plan ---
Discharge Plan Problem Reviewed?: Yes Disposition: Home Health Service Condition: Fair Prescriptions: LORazepam [Ativan] 1 mg PO TID PRN #12 tab PRN Reason: Alcohol Withdrawal chlordiazePOXIDE [Librium] 10 mg PO DAILY #7 cap Diet: Regular Activity Restrictions: Activity as Tolerated Shower Restrictions: No Driving Restrictions: Yes (Because of your poor balance and ataxia, it is advised that you not drive.) Assistance Devices: Walker Weight Bearing: Full Weight Health Concerns: You were receiving treatment for alcohol withdrawal at [facility]. This resulted in sedation and altered mental status. You were admitted here and we continued your treatment for alcohol withdrawal. We also treated a urinary tract infection that you had. You are being discharged home today and advised to remain off of any alcohol. There are several tablets for you to taper down, to continue with detox from alcohol. Your ambulation is abnormal. 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 This may or may not get better. It is advised that you have further rehab, therefore physical therapy rehab, with a home health agency has been ordered for you. You should see your Primary Care Provider in the next 1 to 2 weeks for hospital follow-up visit. Plan of Treatment: As above. Remember that you need help with climbing stairs and need a walker when you ambulate. Care Goals: Improvement in symptoms and stabilization are the goals. No more alcohol use is also a goal. Assessment: Patient understands the plan. These instructions are provided for you as reminders. No Smoking: If you smoke, Please STOP! Call for help.
--- NOTE | 2022-11-01 12:01 | DISCHARGE SUMMARY ---
Discharge Summary Admit Date: 10/26/22 Discharge Date: 11/01/22 Discharging Provider: Dr Amina Garcia Primary Care Provider: None Condition at Discharge: Fair Discharge Disposition: [facility] History of Present Illness: The patient was brought to the emergency room by EMS on October 25. She is in a treatment facility for alcohol withdrawal. Her last drink was October 23. She is on multiple, multiple medications for symptoms that are as needed. She was starting to have visual and auditory hallucinations. There is no description of fever, chills, cough. She was not ambulating as much and seem to be getting weaker. As such she was brought to the emergency room. On initial evaluation blood pressure was 98/57, temperature 37.5, heart rate 72. Oxygenating well on room air. Part of her evaluation included a CT of the head which showed a hygroma and a 4 mm shift, with the hygroma at 8 mm. Neurology was consulted (rather neurosurgery) and they felt that this was not acute problem. During her stay in the ER she was drowsy, with slurred mumbling speech. She was disoriented. Neurosurgery felt that this was not an acute problem and more due to her withdrawal. He recommended repeat CT of the head and he looked at the CAT scan and repeat CAT scan showed a 10 mm hygroma with a 5 mm shift. He did not feel that anything needed to be done. The patient was kept in the emergency room for a few more hours of observation. The ER doctor spoke to telehealth who postulated this patient could be having subclinical seizures. And recommended EEG. We do not have EEG or neurology at this facility. The ER doctor felt comfortable keeping the patient overnight. Toward the end of his shift the patient was increasingly awake, alert, oriented x3. He did a CT angiogram and nothing new was found. Although she was more awake and alert, she had increasing tremulousness. When they tried to stand her, she had generalized weakness and tremors. The rehab facility requires that the patient be able to walk independently. As such Dr. Ventura asked me to admit the patient. After discussion of her symptoms, presentation, treatment in the ER, I have decided to admit the patient observation. The patient tells me that this is the first time she is ever gone through withdrawal. She has never had seizures, nor has she had blackouts. - HOSPITAL COURSE Hospital Course: (1) Alcohol withdrawal delirium She was put on a CIWA protocol with as needed IV Ativan dosing. Patient also started on schedule Librium with titration of the dose decreasing. Patient was evaluated by physical therapy and there was concern if she was able to ambulate and use stairs. She needed additional hospital days in order to be able to ambulate and use stairs. At the time of discharge, home health agency was ord ered to provide her with PT, OT, RN, bath aide and a social insurance analyst. (2) Alcoholic hepatitis Code(s): K70.10 - Alcoholic hepatitis without ascites Her LFTs were elevated consistent with alcohol abuse. The patient had ataxia and her tremor, despite being on benzos. Alcohol cessation was discussed with the (3) Hypokalemia Probably caused by poor oral intake in a patient with alcohol abuse. Resolved with replacement (4) Hypomagnesemia Resolved with replacement (5) E. coli UTI Code(s): N39.0 Found to have UTI and she completed course of Macrobid for E. coli which was sensitive to Macrobid. - ALLERGIES Allergies/Adverse Reactions: Allergies Allergy/AdvReac Type Severity Reaction Status Date / Time Penicillins Allergy Unknown Verified 10/25/22 16:44 - MEDICATIONS Home Medications: Ambulatory Orders Medication Instructions Recorded Confirmed Acetaminophen [Tylenol] 1,000 mg PO Q6HR PRN 10/25/22 10/25/22 Gabapentin [Neurontin] 300 mg PO TID 10/25/22 10/25/22 Ibuprofen 600 mg PO Q6HR PRN 10/25/22 10/25/22 Melatonin 10 mg PO HS PRN 10/25/22 10/25/22 Multivitamin [Theragran] 1 each PO DAILY 10/25/22 10/25/22 Ondansetron Odt [Zofran Odt] 4 mg TL Q6H PRN 10/25/22 10/25/22 Vitamin B Complex Vit C No.3 [B 1 each PO DAILY 10/25/22 10/25/22 Complex with Vitamin C] traZODone [Desyrel] 50 - 100 mg PO HS PRN 10/25/22 10/25/22 LORazepam [Ativan] 1 mg PO TID PRN #12 tab 11/01/22 chlordiazePOXIDE [Librium] 10 mg PO UD #9 cap 11/01/22 - PHYSICAL EXAM AT DISCHARGE General Appearance: positive: Lethargic (Eyes are ptotic, She is disheveled, Peers older than her age) Eyes Bilateral: positive: Other (Ptosis and appears fatigued.) ENT: positive: No signs of dehydration Neck: positive: Nml inspection Respiratory: positive: No respiratory distress Cardiovascular: positive: Regular rate & rhythm, No murmur Abdomen: positive: Nml bowel sounds, No distention Skin: positive: Warm, Dry Extremities: positive: Non-tender, No pedal edema Neurologic/Psychiatric: positive: Oriented x3, Other (Slow to respond, appears fatigued (is on scheduled benzodiazepines), has a resting tremor of her hands, no nystagmus.) - LABS Result Diagrams: 10/30/22 04:54 10/31/22 04:51 - FOLLOW UP Follow Up: Needs to be seen for hospital follow-up, establish with a PCP. - TIME SPENT Time Spent in Discharge (Minutes): 25
[2022-11-01 14:51] VITALS: BP 145/97
== END 2022-11-01 15:00 | disposition home health service (06) ==
LOC: ED 16:41 → MS2 10-26 10:39
PROVIDERS: ADMIT Specialist; ATTEND Internal Medicine
DX: F10.231 Alcohol dependence with withdrawal delirium (principal); D18.1 Lymphangioma, any site; R41.82 Altered mental status, unspecified; R25.1 Tremor, unspecified; K70.10 Alcoholic hepatitis without ascites; E87.6 Hypokalemia; E83.42 Hypomagnesemia; N30.00 Acute cystitis without hematuria; B96.20 Unspecified Escherichia coli [E. coli] as the cause of diseases classified elsewhere; R44.1 Visual hallucinations; R44.0 Auditory hallucinations; R53.1 Weakness; I10 Essential (primary) hypertension; F17.290 Nicotine dependence, other tobacco product, uncomplicated; F32.A Depression, unspecified; F41.9 Anxiety disorder, unspecified; S80.11XA Contusion of right lower leg, initial encounter; X58.XXXA Exposure to other specified factors, initial encounter; Y92.230 Patient room in hospital as the place of occurrence of the external cause; R27.0 Ataxia, unspecified; Z20.822 Contact with and (suspected) exposure to COVID-19
CPT/HCPCS: 36415; 70450; 70496; 70498; 76705; 80048; 80053; 80074; 80306; 80320; 81001; 81025; 82140; 82550; 83605; 83690; 83735; 84100; 84703; 85025; 85610; 87077; 87086; 87181; 87633; 93005; 96361; 96365; 96366; 96367; 96368; 96372; 96375; 96376; 97162; 97530; 99284; 99285; A9270; G0378; J1650; J2060; J3411; Q9967; 81003